=== PATIENT | female | born 1945 | race African-American/Black ===

== ENCOUNTER 2016-10-02 15:40 | Emergency (ER) | payer OTHER ==
[~2016-10-02] VITALS: Ht 170.2 cm; Wt 88.9 kg
[~2016-10-02 15:40] MED LIST: ADVAIR HFA 1112 UNIT INH; ALBUTEROL INHAL17 GM IH; ALBUTEROL2.5 MG/31 INH; ALBUTEROL2.5 MG/32 IH; ALDACTONE25 MG PO; AMBIEN 5 MG TABL5 M1 PO; AMLODIPINE BESYL5 MG PO; AMOXICILLIN 50500 M1 PO; ASPIRIN EC325 M1 PO; AZITHROMYCIN 2250 MG PO; BENADRYL25 MG PO; CATAPRES-TTS 10.1 MG TOP; COZAAR 50 MG TA50 M1 PO; COZAAR 50 MG TA50 M2 PO; COZAAR100 MG PO; DUONEB 2.5-0.5 M3 ML INH; HYDROCODONE-AP1 EAC6 PO; K-DUR 20 MEQ T20 MEQ PO; K-DUR10 ME1 PO; KCLP 20 MEQ2 MEQ/ML PO; KLOR-CON 10 ER10 MEQ PO; KLOR-CON 1010 MEQ PO; LEXAPRO 10 MG T10 MG PO; LO-DOSE ASPIRIN81 M1 PO; LOPRESSOR25 PO; LORTAB 5 MG/5001 TA1 PO; MACROBID 100 M100 M3 PO; METOPROLOL SUCC25 M1 PO; MUCINEX600 MG PO; MULTIVITAMINS PO; NAPROSYN375 MG PO; NEXIUM40 MG PO; NORCO 5-325 TA1 EACH PO; NORVASC10 MG PO; NOVOLOG100 UNIT/1; NOVOLOG100 UNIT/1 SUBQ; NOVOPEN 31 EACH SQ; OMEPRAZOLE 20 M20 M1 PO; OMEPRAZOLE PO; POTASSIUM20 PO; PREDNISONE 10 M10 M1; PREDNISONE 10 M10 M1 PO; PRILOSEC 20 MG20 MG PO; PROAIR HFA8.5 GM INH; PROVENTIL HFA6.7 G1 INH; TESSALON PERLE100 MG PO; TOPROL XL50 MG PO; VENTOLIN HFA 1818 GM INH; XANAX 0.5 MG0.5 M1 PO; XANAX 0.5 MG0.5 MG PO; ZOFRAN ODT4 MG PO; ZPAK PO
[2016-10-02 16:14] LABS: ABSOLUTE NEUTROPHILS 5.3 thou/uL (1.4-8.2); BASOPHILS 0.9 % (0.0-2.0); EOSINOPHILS 1.7 % (0.0-3.0); HEMATOCRIT 32.2 % (37.0-47.0); HEMOGLOBIN 10.7 gm/dL (12.0-15.0); LYMPHOCYTES 14.5 % (24.0-44.0); MCH 25.9 pg (26.0-34.0); MCHC 33.3 % (28.0-37.0); MCV 77.8 fL (80.0-100.0); MONOCYTES 7.1 % (1.0-8.0); PLATELET COUNT 213 thou/uL (150-400); POLYS 75.8 % (36.0-66.0); RBC 4.14 mil/uL (4.20-5.00); RDW 14.8 % (10.5-14.5)
[2016-10-02 16:17] LABS: MANUAL DIFF NO
[2016-10-02] MEDS ORDERED: LOPRESSOR25 PO (16:18)
[2016-10-02] MEDS ORDERED: LOSARTAN POTASS50 MG PO (16:19)
[2016-10-02 16:21] LABS: CALCIUM 8.9 mg/dL (8.5-10.1); CREATININE 1.2 mg/dL (0.6-1.3); POTASSIUM 3.5 mmol/L (3.5-5.1)
[2016-10-02 16:27] LABS: ALBUMIN 3.7 g/dL (3.4-5.0); TOTAL BILIRUBIN 1.1 mg/dL (<0.1-1.0); TOTAL PROTEIN 7.8 g/dL (6.4-8.2)
[2016-10-02 17:29] LABS: URINE BILIRUBIN NEGATIVE (Negative); URINE BLOOD NEGATIVE (Negative); URINE COLOR YELLOW; URINE GLUCOSE-RANDOM* NEGATIVE (Negative); URINE KETONES NEGATIVE (Negative); URINE LEUKOCYTES-REFLEX 1+ (Negative); URINE PROTEIN (DIPSTICK) NEGATIVE (Negative); URINE SPECIFIC GRAVITY <= 1.005 (1.003-1.035); URINE UROBILINOGEN 0.2 E.U./dl (0.2-1.0)
[2016-10-02 17:44] LABS: CASTS None Seen /LPF (None Seen); CRYSTALS None Seen /LPF (None Seen); SQUAMOUS None Seen /LPF (0-3); URINE WBC-REFLEX 0-5 Rare /HPF (0-5)
[2016-10-02 17:45] LABS: URINE RBC None Seen /HPF (0-2)
[2016-10-02] MEDS ORDERED: VENTOLIN HFA 1818 GM INH (18:48)
[2016-10-02] MEDS ORDERED: NAPROSYN500 MG PO (18:48)
[2016-10-02 19:06] VITALS: BP 135/74
[2016-11-04] MEDS ORDERED: ANTIVERT25 MG PO (01:07)
[2016-11-04] MEDS ORDERED: KEFLEX500 MG PO (01:26)
== END 2016-10-02 19:33 | disposition home or self-care (01) ==
LOC: ER 15:40
PROVIDERS: Emergency Medicine
DX: B34.9 Viral infection, unspecified (principal); I10 Essential (primary) hypertension; E11.9 Type 2 diabetes mellitus without complications; Z88.1 Allergy status to other antibiotic agents; Z88.8 Allergy status to other drugs, medicaments and biological substances

== ENCOUNTER 2017-04-18 18:53 | Emergency (ER) | payer OTHER ==
[~2017-04-18] VITALS: Ht 170.2 cm; Wt 85.7 kg
--- NOTE | ~2017-04-18 | EKG ---
[address] [place] [address] ELECTROCARDIOGRAM REPORT Name: ELISABETHRAMIREZ Pascual [id number] Admission: 04/18/17 Attend Phys: Discharge: 04/18/17 Date of : 47 Report #: [id number] THIS REPORT FOR: //name// [facility] ED Test Date: 2017-04-18 Test Time: 19:09:56 Pat Name: RAMIREZ BARBER Department: Room: Gender: F Portfolio Specialist: [id number] : 1945 Requested By: Nadira Rojas Order Number: [id number] MD: Alexis Saldana Measurements Intervals [place] Rate: 68 P: 26 WY: 201 QRS: -45 QRSD: 125 T: 14 QT: 433 QTc: 461 Interpretive Statements Sinus rhythm Nonspecific IVCD with LAD Left ventricular hypertrophy Baseline wander in lead(s) II,aVR,aVF Compared to ECG 04/01/2017 08:30:03 Early repolarization no longer present Electronically Signed On 04-21-2017 8:33:01 CDT by Alexis Saldana [email or web address] <ELECTRONICALLY SIGNED> By: Alexis Saldana MD, [facility] 04/21/17 0833 [id number] 1909 Alexis Saldana MD, [facility] /EPI
[~2017-04-18 18:53] MED LIST changes: +ANTIVERT25 MG PO; +KEFLEX500 MG PO; +LOSARTAN POTASS50 MG PO; +NAPROSYN500 MG PO
[2017-04-18 19:35] LABS: ABSOLUTE NEUTROPHILS 3.2 thou/uL (1.4-8.2); BASOPHILS 0.6 % (0.0-2.0); EOSINOPHILS 3.9 % (0.0-3.0); HEMATOCRIT 29.9 % (37.0-47.0); LYMPHOCYTES 35.8 % (24.0-44.0); MCH 26.6 pg (26.0-34.0); MCHC 33.6 g/dL (28.0-37.0); MCV 79.2 fL (80.0-100.0); MONOCYTES 7.8 % (1.0-8.0); PLATELET COUNT 243 thou/uL (150-400); POLYS 51.9 % (36.0-66.0); RBC 3.77 mil/uL (4.20-5.00); RDW 14.7 % (10.5-14.5); WBC 6.1 thou/uL (4.0-11.0)
[2017-04-18 19:37] LABS: MANUAL DIFF NO
[2017-04-18 19:40] LABS: ANION GAP 10 mmol/L (7-16); BUN 13 mg/dL (7-18); CHLORIDE 107 mmol/L (98-107); CO2 28 mmol/L (21-32); CREATININE 1.3 mg/dL (0.6-1.0); GLUCOSE 117 mg/dL (74-106); POTASSIUM 3.5 mmol/L (3.5-5.1); SODIUM 145 mmol/L (136-145)
[2017-04-18 19:50] LABS: TROPONIN-I < 0.04 ng/mL (<0.04-0.07)
[2017-04-18] MEDS ORDERED: ZANTAC 150MG T150 MG PO (20:12)
[2017-04-18 20:30] VITALS: BP 164/74
== END 2017-04-18 20:31 | disposition home or self-care (01) ==
LOC: ER 18:53
PROVIDERS: Emergency Medicine
DX: K21.9 Gastro-esophageal reflux disease without esophagitis (principal); I10 Essential (primary) hypertension; E11.9 Type 2 diabetes mellitus without complications; D86.9 Sarcoidosis, unspecified; Z79.4 Long term (current) use of insulin; Z88.1 Allergy status to other antibiotic agents; Z88.8 Allergy status to other drugs, medicaments and biological substances

== ENCOUNTER 2017-10-16 21:39 | Emergency (ER) | payer OTHER ==
[~2017-10-16] VITALS: Ht 170.2 cm; Wt 86.2 kg
--- NOTE | ~2017-10-16 | EKG ---
[address] [place] [address] ELECTROCARDIOGRAM REPORT Name: RAMIREZ BARBER [facility] [id number] Admission: 10/16/17 Attend Phys: Discharge: 10/17/17 Date of : 47 Report #: [id number] THIS REPORT FOR: //name// [facility] ED Test Date: 2017-10-16 Test Time: 23:06:24 Pat Name: RAMIREZ BARBER Department: Room: Gender: F Structural Steel Equipment Erector: [facility] : 1945 Requested By: Ganesh Casillas Order Number: [id number] MD: Alexis Saldana Measurements Intervals [place] Rate: 84 P: -62 [place]: 215 QRS: -48 QRSD: 117 T: 5 QT: 370 QTc: 438 Interpretive Statements Sinus rhythm Borderline prolonged OK interval LAD, consider left anterior fascicular block Nonspecific intraventricular conduction delay Nonspecific ST and T wave abnormality Compared to ECG 09/10/2017 01:44:23 No significant change was found Electronically Signed On 10-17-2017 9:09:39 ORAL SURGERY PHYSICIAN by Alexis Saldana [email or web address] <ELECTRONICALLY SIGNED> By: Alexis Saldana MD, [facility] 10/17/17 0909 2306 Alexis Saldana MD, [facility] /EPI
[~2017-10-16 21:39] MED LIST changes: +ZANTAC 150MG T150 MG PO
[2017-10-16 23:11] LABS: ABSOLUTE NEUTROPHILS 8.4 thou/uL (1.4-8.2); BASOPHILS 0.8 % (0.0-2.0); HEMATOCRIT 31.2 % (37.0-47.0); HEMOGLOBIN 10.4 gm/dL (12.0-15.0); LYMPHOCYTES 13.4 % (24.0-44.0); MCH 26.2 pg (26.0-34.0); MCHC 33.4 g/dL (28.0-37.0); MCV 78.6 fL (80.0-100.0); MONOCYTES 6.8 % (1.0-8.0); PLATELET COUNT 222 thou/uL (150-400); RBC 3.97 mil/uL (4.20-5.00); RDW 15.1 % (10.5-14.5); WBC 10.8 thou/uL (4.0-11.0)
[2017-10-16 23:30] LABS: CALCIUM 8.6 mg/dL (8.5-10.1); CREATININE 1.2 mg/dL (0.6-1.0); POTASSIUM 3.5 mmol/L (3.5-5.1)
[2017-10-16] MEDS ORDERED: ZOFRAN ODT4 MG PO (23:48)
[2017-10-16] MEDS ORDERED: OSELB75 PO (23:48)
[2017-10-17 00:33] VITALS: BP 146/67
== END 2017-10-17 00:41 | disposition home or self-care (01) ==
LOC: ER 21:39
PROVIDERS: Emergency Medicine
DX: J11.1 Influenza due to unidentified influenza virus with other respiratory manifestations (principal); I10 Essential (primary) hypertension; E11.9 Type 2 diabetes mellitus without complications; Z88.1 Allergy status to other antibiotic agents

== ENCOUNTER 2018-02-01 19:52 | Emergency (ER) | payer OTHER ==
[~2018-02-01] VITALS: Ht 170.2 cm; Wt 84.8 kg
--- NOTE | ~2018-02-01 | EKG ---
[place] [address] [address] [facility] [place] [address] ELECTROCARDIOGRAM REPORT Name: ELISABETHRAMIREZ Pascual Room #: [facility] Javid#: [id number] Admission: 02/01/18 Attend Phys: Discharge: 02/01/18 Date of : 47 Report #: [id number] THIS REPORT FOR: //name// [facility] ED Test Date: 2018-02-01 Test Time: 20:00:29 Pat Name: RAMIREZ BARBER Department: Room: Gender: F Library Media Assistant: TAI : 1945 Requested By: Ganesh Casillas Order Number: [id number] MD: Anton Peralta Measurements Intervals [place] Rate: 89 P: 40 [place]: 196 QRS: -37 QRSD: 117 T: 18 QT: 365 QTc: 445 Interpretive Statements Sinus rhythm LVH with IVCD, LAD and secondary repol abnrm Compared to ECG 10/16/2017 23:06:24 Left ventricular hypertrophy now present Early repolarization now present ST (T wave) deviation no longer present Electronically Signed On 02-02-2018 13:52:15 CDT by Anton Peralta [email or web address] <ELECTRONICALLY SIGNED> By: Anton Peralta MD 02/02/18 1352 99 99 Anton Peralta MD /EPI
[~2018-02-01 19:52] MED LIST changes: +OSELB75 PO
[2018-02-01] MEDS ORDERED: ZOFRAN ODT4 MG PO (20:39)
[2018-02-01 21:02] VITALS: BP 161/60
== END 2018-02-01 21:03 | disposition home or self-care (01) ==
LOC: ER 19:52
DX: J02.8 Acute pharyngitis due to other specified organisms (principal); I10 Essential (primary) hypertension; D86.9 Sarcoidosis, unspecified; E11.9 Type 2 diabetes mellitus without complications; Z79.4 Long term (current) use of insulin; Z88.1 Allergy status to other antibiotic agents; Z88.8 Allergy status to other drugs, medicaments and biological substances

== ENCOUNTER 2018-02-08 01:31 | Emergency (ER) | payer OTHER ==
[~2018-02-08] VITALS: Ht 172.7 cm; Wt 88.9 kg
[2018-02-08 04:44] LABS: HEMATOCRIT 29.8 % (37.0-47.0); HEMOGLOBIN 9.9 gm/dL (12.0-15.0); MCH 25.7 pg (26.0-34.0); MCHC 33.1 g/dL (28.0-37.0); MCV 77.7 fL (80.0-100.0); PLATELET COUNT 262 thou/uL (150-400); RBC 3.83 mil/uL (4.20-5.00); RDW 15.5 % (10.5-14.5)
[2018-02-08 04:51] LABS: ANION GAP 7 mmol/L (7-16); BUN 16 mg/dL (7-18); CHLORIDE 103 mmol/L (98-107); CO2 27 mmol/L (21-32); CREATININE 1.2 mg/dL (0.6-1.0); GLUCOSE 110 mg/dL (74-106); SODIUM 137 mmol/L (136-145)
[2018-02-08 04:59] LABS: TROPONIN-I < 0.04 ng/mL (<0.06)
[2018-02-08 05:23] LABS: ANISOCYTOSIS SLIGHT
[2018-02-08] MEDS ORDERED: GUAIFEN-CODEINE10 ML PO (05:55)
[2018-02-08 06:21] VITALS: BP 152/80
== END 2018-02-08 06:27 | disposition home or self-care (01) ==
LOC: ER 01:31
PROVIDERS: Emergency Medicine
DX: B34.9 Viral infection, unspecified (principal); I10 Essential (primary) hypertension; E11.9 Type 2 diabetes mellitus without complications; Z88.1 Allergy status to other antibiotic agents; Z88.8 Allergy status to other drugs, medicaments and biological substances

== ENCOUNTER 2018-03-18 10:32 | Emergency (ER) | payer OTHER ==
[~2018-03-18] VITALS: Ht 170.2 cm; Wt 83.9 kg
[~2018-03-18 10:32] MED LIST changes: +GUAIFEN-CODEINE10 ML PO
[2018-03-18] MEDS ORDERED: HYDROCODONE-AP1 EAC6 PO (11:46)
[2018-03-18 11:59] VITALS: BP 166/78
== END 2018-03-18 12:00 | disposition home or self-care (01) ==
LOC: ER 10:32
DX: S80.02XA Contusion of left knee, initial encounter (principal); I10 Essential (primary) hypertension; E11.9 Type 2 diabetes mellitus without complications; Z88.1 Allergy status to other antibiotic agents; W22.09XA Striking against other stationary object, initial encounter; Y93.89 Activity, other specified; Y92.89 Other specified places as the place of occurrence of the external cause; Y99.8 Other external cause status

== ENCOUNTER 2018-11-08 15:21 | Emergency (ER) | payer OTHER ==
[~2018-11-08] VITALS: Ht 167.6 cm; Wt 83.9 kg
[2018-11-08 15:43] LABS: ABSOLUTE NEUTROPHILS 3.2 thou/uL (1.4-8.2); BASOPHILS 0.9 % (0.0-2.0); EOSINOPHILS 4.7 % (0.0-3.0); HEMATOCRIT 33.3 % (37.0-47.0); HEMOGLOBIN 11.1 gm/dL (12.0-15.0); MCH 26.4 pg (26.0-34.0); MCHC 33.4 g/dL (28.0-37.0); MCV 79.2 fL (80.0-100.0); MONOCYTES 6.1 % (1.0-8.0); PLATELET COUNT 255 thou/uL (150-400); POLYS 51.3 % (36.0-66.0); RDW 15.1 % (10.5-14.5); WBC 6.3 thou/uL (4.0-11.0)
[2018-11-08 15:52] LABS: ANION GAP 9 mmol/L (7-16); BUN 15 mg/dL (7-18); CALCIUM 9.3 mg/dL (8.5-10.1); CHLORIDE 105 mmol/L (98-107); CO2 28 mmol/L (21-32); CREATININE 1.6 mg/dL (0.6-1.0); GLUCOSE 153 mg/dL (74-106); POTASSIUM 3.5 mmol/L (3.5-5.1); SODIUM 142 mmol/L (136-145)
[2018-11-08 16:02] LABS: ALBUMIN 3.7 g/dL (3.4-5.0); MAGNESIUM 1.9 mg/dL (1.8-2.4); SGOT 18 U/L (15-37); SGPT 24 U/L (30-65); TOTAL BILIRUBIN 0.5 mg/dL (<0.1-1.0); TOTAL PROTEIN 7.8 g/dL (6.4-8.2); TROPONIN-I <0.06 ng/mL (<0.06)
[2018-11-08] MEDS ORDERED: SULFACETAMIDE 115 M1 OPHTHALMIC (16:33)
[2018-11-08 16:48] VITALS: BP 162/76
[2018-11-08 17:58] LABS: URINE BILIRUBIN NEGATIVE (Negative); URINE BLOOD NEGATIVE (Negative); URINE CLARITY CLEAR; URINE COLOR YELLOW; URINE GLUCOSE-RANDOM* NEGATIVE (Negative); URINE KETONES NEGATIVE (Negative); URINE LEUKOCYTES 1+ (Negative); URINE NITRITE NEGATIVE (Negative); URINE PROTEIN (DIPSTICK) NEGATIVE (Negative); URINE SPECIFIC GRAVITY 1.015 (1.005-1.035); URINE UROBILINOGEN 0.2 E.U./dl (0.2-1.0)
[2018-11-08 18:08] LABS: BACTERIA 1-9 Few /HPF (None Seen); CASTS None Seen /LPF (None Seen); CRYSTALS None Seen /LPF (None Seen); SQUAMOUS 0-3 Few /LPF (0-3); URINE RBC None Seen /HPF (0-2); URINE WBC 0-5 Rare /HPF (0-5)
--- NOTE | 2018-11-08 22:11 | EKG ---
[address] [address] [facility] [place] [address] ELECTROCARDIOGRAM REPORT Name: RAMIREZ BARBER Room #: [facility] Javid#: [id number] ������������������ Admission: 11/08/18 ������������������ Attend Phys: Discharge: 11/08/18 ������������������ Date of : 47 Report #: [id number] ����������������������������������������������������������������� [id number] THIS REPORT FOR: //name// [facility] ED Test Date: 2018-11-08 Test Time: 15:27:21 Pat Name: RAMIREZ BARBER Department: Room: Gender: F Logging Tractor Operator: : 1945 Requested By: Darrell Rossi Order Number: [id number] MD: Anton Peralta Measurements Intervals [place] Rate: 76 P: -41 MA: 228 QRS: -45 QRSD: 120 T: 24 QT: 419 QTc: 472 Interpretive Statements Sinus rhythm Prolonged MA interval Nonspecific IVCD with LAD Left ventricular hypertrophy Compared to ECG 02/01/2018 20:00:29 First degree AV block now present Early repolarization no longer present Electronically Signed On 11-08-2018 22:11:48 TRAVEL ADMINISTRATOR by Anton Peralta [email or web address] ��������������������������������������������� <ELECTRONICALLY SIGNED> ���������������������������������������� By: nAton Peralta MD ��������������������������������������������� 11/08/18 3291 1527 1527 Anton Peralta MD /LAMINE
== END 2018-11-08 16:52 | disposition home or self-care (01) ==
LOC: ER 15:21
PROVIDERS: Emergency Medicine
DX: R55 Syncope and collapse (principal); I12.9 Hypertensive chronic kidney disease with stage 1 through stage 4 chronic kidney disease, or unspecified chronic kidney disease; E11.22 Type 2 diabetes mellitus with diabetic chronic kidney disease; N18.9 Chronic kidney disease, unspecified; F41.9 Anxiety disorder, unspecified; M25.562 Pain in left knee; D86.9 Sarcoidosis, unspecified; Z88.8 Allergy status to other drugs, medicaments and biological substances; Z88.1 Allergy status to other antibiotic agents; Z79.4 Long term (current) use of insulin

== ENCOUNTER 2018-11-22 02:57 | Emergency (ER) | payer OTHER ==
[~2018-11-22] VITALS: Ht 170.2 cm; Wt 88.9 kg
[~2018-11-22 02:57] MED LIST changes: +SULFACETAMIDE 115 M1 OPHTHALMIC
[2018-11-22 03:06] VITALS: BP 187/79
== END 2018-11-22 03:43 | disposition home or self-care (01) ==
LOC: ER 02:57
DX: R51 Headache (principal); I10 Essential (primary) hypertension; E11.9 Type 2 diabetes mellitus without complications; Z88.1 Allergy status to other antibiotic agents; Z88.8 Allergy status to other drugs, medicaments and biological substances

== ENCOUNTER 2019-04-15 03:21 | Emergency (ER) | payer OTHER ==
[~2019-04-15] VITALS: Ht 170.2 cm; Wt 90.3 kg
[2019-04-15] MEDS ORDERED: FLONASE 0.05%50 MCG NASAL (05:08)
[2019-04-15] MEDS ORDERED: ZPAK PO (05:29)
[2019-04-15 05:45] VITALS: BP 156/71
== END 2019-04-15 06:01 | disposition home or self-care (01) ==
LOC: ER 03:21
DX: M27.0 Developmental disorders of jaws (principal); R09.81 Nasal congestion; I10 Essential (primary) hypertension; E11.9 Type 2 diabetes mellitus without complications; Z79.4 Long term (current) use of insulin; Z88.1 Allergy status to other antibiotic agents; Z88.8 Allergy status to other drugs, medicaments and biological substances

== ENCOUNTER 2020-05-04 06:09 | Emergency (ER) | payer OTHER ==
[~2020-05-04] VITALS: Ht 170.2 cm; Wt 81.2 kg
[~2020-05-04 06:09] MED LIST changes: +FLONASE 0.05%50 MCG NASAL
[2020-05-04 06:45] LABS: HEMATOCRIT 32.5 % (37.0-47.0); HEMOGLOBIN 10.5 gm/dL (12.0-15.0); MCH 25.9 pg (26.0-34.0); MCHC 32.5 g/dL (28.0-37.0); MCV 79.9 fL (80.0-100.0); PLATELET COUNT 308 thou/uL (150-400); RBC 4.06 mil/uL (4.20-5.00); RDW 15.6 % (10.5-14.5); WBC 6.2 thou/uL (4.0-11.0)
[2020-05-04 06:49] LABS: ANION GAP 10 mmol/L (7-16); BUN 21 mg/dL (7-18); CALCIUM 8.6 mg/dL (8.5-10.1); CHLORIDE 106 mmol/L (98-107); CO2 27 mmol/L (21-32); CREATININE 1.3 mg/dL (0.6-1.0); GLUCOSE 95 mg/dL (74-106); POTASSIUM 3.8 mmol/L (3.5-5.1); SODIUM 143 mmol/L (136-145)
[2020-05-04 06:57] LABS: TROPONIN-I <0.06 ng/mL (<0.06)
[2020-05-04 08:05] VITALS: BP 148/68
[2020-05-04 08:46] LABS: ABSOLUTE NEUTROPHILS 3.1 thou/uL (1.4-8.2)
[2020-05-04 08:47] LABS: ANISOCYTOSIS SLIGHT
--- NOTE | 2020-05-04 09:12 | EKG ---
[facility] [place] [address] ELECTROCARDIOGRAM REPORT Name: RAMIREZ BARBER Room #: [facility]#: [id number] Admission: 05/04/20 Attend Phys: Discharge: 05/04/20 Date of : 47 Report #: [id number] THIS REPORT FOR: cc: Varun Don MD, Stany A. MD Lundgren,Alexis Crump MD [facility] ~ THIS REPORT FOR: //name// [facility] ED Test Date: 2020-05-04 Test Time: 06:18:16 Pat Name: RAMIREZ BARBER Department: Room: Gender: F Sausage Cutter: EDUARD : 1945 Requested By: Nate Shook Order Number: [id number] MD: Alexis Saldana Measurements Intervals [place] Rate: 59 P: -45 NV: 235 QRS: -41 QRSD: 125 T: 1 QT: 424 QTc: 420 Interpretive Statements Sinus bradycardia Prolonged NV interval Nonspecific IVCD with LAD Left ventricular hypertrophy Baseline wander in lead(s) I,II,aVR Compared to ECG 11/08/2018 15:27:21 No significant change was found Electronically Signed On 05-04-2020 9:12:33 CDT by Alexis Saldana [email or web address] <ELECTRONICALLY SIGNED> By: Alexis Saldana MD, [facility] 05/04/20911 7 7 Alexis Saldana MD, FAC /EPI
== END 2020-05-04 08:23 | disposition home or self-care (01) ==
LOC: ER 06:09
PROVIDERS: Emergency Medicine
DX: R07.9 Chest pain, unspecified (principal); R53.83 Other fatigue; I10 Essential (primary) hypertension; E11.9 Type 2 diabetes mellitus without complications; Z98.890 Other specified postprocedural states; Z79.899 Other long term (current) drug therapy; Z79.4 Long term (current) use of insulin; Z88.1 Allergy status to other antibiotic agents

== ENCOUNTER 2020-10-02 15:54 | Emergency (ER) | payer OTHER ==
[~2020-10-02] VITALS: Ht 170.2 cm; Wt 80.3 kg
--- NOTE | 2020-10-02 16:22 | EKG ---
[place] [address] [address] [facility] [place] [address] ELECTROCARDIOGRAM REPORT Name: RAMIREZ BARBER Room #: [facility].#: [id number] Admission: Attend Phys: Discharge: Date of : 47 Report #: [id number] [facility] ED Test Date: 2020-10-02 Test Time: 16:02:11 Pat Name: RAMIREZ BARBER Department: Room: Gender: F Manager Urgent Care: ELDA : 1945 Requested By: Michele Celis Order Number: [id number] MD: Alexis Saldana Measurements Intervals [place] Rate: 80 P: -45 DE: 205 QRS: -30 QRSD: 118 T: 49 QT: 402 QTc: 464 Interpretive Statements Sinus rhythm with first-degree AV block LAFB Nonspecific intraventricular conduction delay Nonspecific ST segment abnormality Compared to ECG 05/04/2020 06:18:16 No significant change was found Electronically Signed On 10-02-2020 16:22:02 STOCK CRANE OPERATOR by Alexis Saldana [email or web address] <ELECTRONICALLY SIGNED> By: Alexis Saldana MD, [facility] 10/02/20 1622 1602 1602 Alexis Saldana MD, FACC /EPI
[2020-10-02 16:48] LABS: ABSOLUTE NEUTROPHILS 2.3 thou/uL (1.4-8.2); BASOPHILS 1.3 % (0.0-2.0); HEMATOCRIT 31.7 % (37.0-47.0); HEMOGLOBIN 10.1 gm/dL (12.0-15.0); LYMPHOCYTES 27.6 % (24.0-44.0); MCH 25.8 pg (26.0-34.0); MCHC 31.9 g/dL (28.0-37.0); MCV 80.9 fL (80.0-100.0); MONOCYTES 9.6 % (1.0-8.0); PLATELET COUNT 198 thou/uL (150-400); POLYS 60.5 % (36.0-66.0); RBC 3.92 mil/uL (4.20-5.00); RDW 15.2 % (10.5-14.5); WBC 3.7 thou/uL (4.0-11.0)
[2020-10-02 16:59] LABS: ANION GAP 12 mmol/L (7-16); BUN 10 mg/dL (7-18); CALCIUM 8.8 mg/dL (8.5-10.1); CHLORIDE 104 mmol/L (98-107); CO2 26 mmol/L (21-32); CREATININE 1.2 mg/dL (0.6-1.0); GLUCOSE 109 mg/dL (74-106); POTASSIUM 3.6 mmol/L (3.5-5.1); SODIUM 142 mmol/L (136-145)
[2020-10-02 17:02] LABS: APTT 25.5 Seconds (24.5-32.8); PROTIME 10.6 Seconds (9.3-11.4)
[2020-10-02 17:09] LABS: ALBUMIN 3.3 g/dL (3.4-5.0); SGOT 23 U/L (15-37); SGPT 27 U/L (30-65); TOTAL BILIRUBIN 0.6 mg/dL (0.2-1.0); TOTAL PROTEIN 7.4 g/dL (6.4-8.2); TROPONIN-I <0.06 ng/mL (<0.06)
[2020-10-02 17:21] LABS: URINE BILIRUBIN NEGATIVE (Negative); URINE BLOOD NEGATIVE (Negative); URINE CLARITY CLEAR; URINE COLOR YELLOW; URINE GLUCOSE-RANDOM* NEGATIVE (Negative); URINE KETONES NEGATIVE (Negative); URINE LEUKOCYTES-REFLEX NEGATIVE (Negative); URINE NITRITE-REFLEX NEGATIVE (Negative); URINE PROTEIN (DIPSTICK) 1+ (Negative); URINE SPECIFIC GRAVITY 1.015 (1.005-1.035); URINE UROBILINOGEN 0.2 E.U./dl (0.2-1.0)
[2020-10-02 17:35] LABS: BACTERIA-REFLEX 1-9 Few /HPF (None Seen); CASTS None Seen /LPF (None Seen); CRYSTALS None Seen /LPF (None Seen); SQUAMOUS 0-3 Few /LPF (0-3)
[2020-10-02 17:36] LABS: URINE RBC None Seen /HPF (0-2); URINE WBC-REFLEX None Seen /HPF (0-5)
[2020-10-02] MEDS ORDERED: CODEINE-GUAIFE120 ML PO (18:01)
[2020-10-02 18:35] VITALS: BP 124/75
== END 2020-10-02 18:41 | disposition home or self-care (01) ==
LOC: ER 15:54
PROVIDERS: Emergency Medicine
DX: U07.1 COVID-19 (principal); I10 Essential (primary) hypertension; E11.9 Type 2 diabetes mellitus without complications; Z98.890 Other specified postprocedural states; Z88.1 Allergy status to other antibiotic agents; Z88.8 Allergy status to other drugs, medicaments and biological substances; Z79.4 Long term (current) use of insulin; Z79.899 Other long term (current) drug therapy

== ENCOUNTER 2020-10-04 04:22 | Emergency (ER) | payer OTHER ==
[~2020-10-04] VITALS: Ht 170.2 cm; Wt 80.3 kg
[~2020-10-04 04:22] MED LIST changes: +CODEINE-GUAIFE120 ML PO
[2020-10-04 05:16] LABS: ABSOLUTE NEUTROPHILS 3.8 thou/uL (1.4-8.2); BASOPHILS 0.7 % (0.0-2.0); EOSINOPHILS 0.8 % (0.0-3.0); HEMATOCRIT 31.1 % (37.0-47.0); HEMOGLOBIN 9.9 gm/dL (12.0-15.0); LYMPHOCYTES 22.4 % (24.0-44.0); MCH 25.7 pg (26.0-34.0); MCHC 31.9 g/dL (28.0-37.0); MCV 80.7 fL (80.0-100.0); MONOCYTES 6.6 % (1.0-8.0); PLATELET COUNT 212 thou/uL (150-400); POLYS 69.5 % (36.0-66.0); RBC 3.86 mil/uL (4.20-5.00); RDW 14.9 % (10.5-14.5); WBC 5.5 thou/uL (4.0-11.0)
[2020-10-04 05:59] LABS: ALBUMIN 3.2 g/dL (3.4-5.0); ANION GAP 12 mmol/L (7-16); BUN 10 mg/dL (7-18); CHLORIDE 103 mmol/L (98-107); CO2 24 mmol/L (21-32); CREATININE 1.2 mg/dL (0.6-1.0); GLUCOSE 117 mg/dL (74-106); LIPASE 107 U/L (73-393); POTASSIUM 3.4 mmol/L (3.5-5.1); SGOT 24 U/L (15-37); SGPT 25 U/L (14-59); SODIUM 139 mmol/L (136-145); TOTAL BILIRUBIN 0.6 mg/dL (0.2-1.0); TOTAL PROTEIN 7.4 g/dL (6.4-8.2); TROPONIN-I <0.06 ng/mL (<0.06)
[2020-10-04 06:00] LABS: CALCIUM 8.9 mg/dL (8.5-10.1)
[2020-10-04 06:17] LABS: URINE BILIRUBIN NEGATIVE (Negative); URINE BLOOD NEGATIVE (Negative); URINE CLARITY CLEAR; URINE COLOR YELLOW; URINE GLUCOSE-RANDOM* NEGATIVE (Negative); URINE KETONES TRACE (Negative); URINE LEUKOCYTES-REFLEX NEGATIVE (Negative); URINE NITRITE-REFLEX NEGATIVE (Negative); URINE PROTEIN (DIPSTICK) 1+ (Negative); URINE SPECIFIC GRAVITY 1.015 (1.005-1.035); URINE UROBILINOGEN 0.2 E.U./dl (0.2-1.0)
[2020-10-04 06:54] LABS: BACTERIA-REFLEX None Seen /HPF (None Seen); CASTS None Seen /LPF (None Seen); CRYSTALS None Seen /LPF (None Seen); SQUAMOUS 0-3 Few /LPF (0-3); URINE RBC 0-2 Rare /HPF (0-2); URINE WBC-REFLEX 0-5 Rare /HPF (0-5)
--- NOTE | 2020-10-04 07:17 | EKG ---
[address] [address] [place] [address] ELECTROCARDIOGRAM REPORT Name: ELISABETHESTHELARAMIREZ M [facility] #: [facility] [id number] Admission: 10/04/20 Attend Phys: Discharge: Date of : 47 Report #: [id number] [facility] ED Test Date: 2020-10-04 Test Time: 04:43:33 Pat Name: RAMIREZ BARBER Department: Room: Gender: F Field Trainer: GIACOMO : 1945 Requested By: Michele Celis Order Number: [id number] MD: Tho Lockhart Measurements Intervals [place] Rate: 72 P: -23 MN: 211 QRS: -53 QRSD: 124 T: 4 QT: 412 QTc: 451 Interpretive Statements Sinus rhythm Nonspecific IVCD with LAD Left ventricular hypertrophy Compared to ECG 10/02/2020 16:02:11 Left ventricular hypertrophy now present Left anterior fascicular block no longer present ST (T wave) deviation no longer present Electronically Signed On 10-04-2020 7:17:07 PLATE HANGER by Tho Lockhart [email or web address] <ELECTRONICALLY SIGNED> By: Tho Lockhart MD, [facility] 10/04/20 07 2 2 Tho Lockhart MD, FAC /EPI
[2020-10-04 08:41] VITALS: BP 148/65
== END 2020-10-04 08:41 | disposition home or self-care (01) ==
LOC: ER 04:22
PROVIDERS: Emergency Medicine
DX: R10.31 Right lower quadrant pain (principal); I10 Essential (primary) hypertension; E11.9 Type 2 diabetes mellitus without complications; Z88.1 Allergy status to other antibiotic agents; Z88.8 Allergy status to other drugs, medicaments and biological substances; Z79.899 Other long term (current) drug therapy; Z79.4 Long term (current) use of insulin; Z98.890 Other specified postprocedural states

== ENCOUNTER 2020-10-06 23:51 | Inpatient (IN) | payer OTHER ==
[~2020-10-06] VITALS: Ht 170.2 cm; Wt 81.2 kg
[2020-10-06 23:54] VITALS: BP 121/63
[2020-10-07 01:02] LABS: ABSOLUTE NEUTROPHILS 4.1 thou/uL (1.4-8.2); EOSINOPHILS 0.9 % (0.0-3.0); HEMATOCRIT 28.3 % (37.0-47.0); LYMPHOCYTES 19.2 % (24.0-44.0); MCH 25.5 pg (26.0-34.0); MCHC 31.9 g/dL (28.0-37.0); MCV 79.9 fL (80.0-100.0); MONOCYTES 9.7 % (1.0-8.0); PLATELET COUNT 261 thou/uL (150-400); POLYS 69.2 % (36.0-66.0); RBC 3.54 mil/uL (4.20-5.00); RDW 14.6 % (10.5-14.5); WBC 5.9 thou/uL (4.0-11.0)
[2020-10-07 01:08] LABS: CALCIUM 8.4 mg/dL (8.5-10.1); CREATININE 1.6 mg/dL (0.6-1.0); POTASSIUM 3.4 mmol/L (3.5-5.1)
[2020-10-07 01:14] LABS: ALBUMIN 2.8 g/dL (3.4-5.0); TOTAL BILIRUBIN 0.7 mg/dL (0.2-1.0); TOTAL PROTEIN 7.1 g/dL (6.4-8.2)
[2020-10-07 06:41] LABS: URINE BILIRUBIN NEGATIVE (Negative); URINE BLOOD TRACE (Negative); URINE CLARITY CLEAR; URINE COLOR YELLOW; URINE GLUCOSE-RANDOM* NEGATIVE (Negative); URINE KETONES NEGATIVE (Negative); URINE LEUKOCYTES NEGATIVE (Negative); URINE NITRITE NEGATIVE (Negative); URINE PROTEIN (DIPSTICK) NEGATIVE (Negative); URINE SPECIFIC GRAVITY <= 1.005 (1.005-1.035); URINE UROBILINOGEN 0.2 E.U./dl (0.2-1.0)
[2020-10-07] MEDS ORDERED: LOSARTAN POTAS100 MG PO (09:55)
--- NOTE | 2020-10-07 12:35 | EKG ---
[place] [address] [address] [employer] [place] [address] ELECTROCARDIOGRAM REPORT Name: RAMIREZ BARBER Room #: 170-6 ADM IN M.R.#: [id number] Admission: 10/07/20 Attend Phys: Willis Maldonado MD Discharge: Date of : 47 Report #: [id number] [facility] ED Test Date: 2020-10-07 Test Time: 00:48:11 Pat Name: RAMIREZ BARBER Department: Room: 170 Gender: F Requirements Manager: guevara : 1945 Requested By: Karan Aguirre Order Number: [id number] MD: Alexis Saldana Measurements Intervals [place] Rate: 62 P: -37 [place]: 207 QRS: -43 QRSD: 125 T: -19 QT: 447 QTc: 454 Interpretive Statements Sinus rhythm Nonspecific IVCD with LAD Borderline T abnormalities, inferior leads Compared to ECG 10/04/2020 04:43:33 No significant change was found Electronically Signed On 10-07-2020 12:35:35 OYSTER OPENER by Alexis Saldana [email or web address] <ELECTRONICALLY SIGNED> By: Alexis Saldana MD, [facility] 10/07/20 1235 0048 Alexis Saldana MD, FAC /EPI
[2020-10-07 14:42] VITALS: BP 117/63
--- NOTE | 2020-10-07 16:12 | HC ---
[facility] [place] [address] CONSULTATION Name: RAMIREZ BARBER Room #: 170-6 ADM IN M.R.#: [id number] Admission: 10/07/20 Attend Phys: Willis Maldonado MD Discharge: Date of : 47 Report #: [id number] THIS REPORT FOR: cc: Varun Don MD, Stany A. MD Barry,Jonn Gama MD ~ DATE OF SERVICE: 10/07/2020 INFECTIOUS DISEASE CONSULTATION ATTENDING PHYSICIAN: Dr. Maldonado. REASON FOR EVALUATION: COVID-19 infection, complicated by pneumonitis and respiratory failure. HISTORY OF SUBJECTIVE: Chart reviewed, patient examined. This is a 75-year-old woman with fairly extensive medical history including diabetes mellitus type 2, also has sarcoidosis and hypertension, who presented to the Emergency Room with complaints of dyspnea. She did test positive for the coronavirus on 10/02/2020. However, she noted when checking her saturations, they had dropped into the low 80s. Did admit to cough as well as. Has poor p.o. intake. She had some chills and maybe some low-grade temperature elevations along with progressive weakness. She was evaluated in the Emergency Room. Lactic acid was 1.2. Blood cultures collected at time of admission. She was seen on the , sterile thus far. D-dimer was elevated at 2.16. Did undergo a CT abdomen and pelvis previously. There is a question of a new small renal neoplasm without obstruction. No abscesses. Chest x-ray showed mild bibasilar infiltrates. CT chest PE protocol showed no evidence of pulmonary embolus, did have bronchiectasis and patchy consolidated as well. Empirically started on azithromycin, ceftriaxone as well as dexamethasone. ALLERGIES: LISTED TO LEVAQUIN, LISINOPRIL, WHICH CAUSES A COUGH. CURRENT MEDICATIONS: Include enoxaparin, multivitamin, amlodipine, famotidine, zinc, ascorbic acid, dexamethasone, insulin lispro sliding scale, ceftriaxone and azithromycin. PAST MEDICAL HISTORY: Hypertension, sarcoidosis, diabetes mellitus. SOCIAL HISTORY: Nonsmoker, no ethanol, no illicit drug use. FAMILY HISTORY: Noncontributory. REVIEW OF SYSTEMS: Otherwise, unremarkable 10-point review of systems. [facility] [address] [place] [address] CONSULTATION Name: RAMIREZ BARBER Room #: 170-6 [facility] IN [facility].#: [id number] Admission: 10/07/20 Attend Phys: Willis Maldonado MD Discharge: Date of : 47 Report #: [id number] PHYSICAL EXAMINATION: GENERAL: She is in htdm-yd-xqkdazdk distress. She is generally lucid, appears reasonably well nourished. VITAL SIGNS: Temperature 97.7, pulse 55, respirations 25, blood pressure 117/63. SKIN: Warm, dry, no rashes. HEENT: Nasal cannula in place. Normocephalic. Extraocular muscles intact. NECK: Supple. LUNGS: Few scattered coarse breath sounds. HEART: Borderline bradycardic, appears to be regular, may have a soft systolic murmur. ABDOMEN: Mildly distended, soft. There is some mild tenderness. GENITOURINARY AND RECTAL: Deferred. LABORATORY DATA: Procalcitonin 0.18. CT of the chest and chest x-ray were as noted above. Urinalysis otherwise unremarkable. CBC: White count of 5.9, H and H 9.0 and 28.3, platelets of 261. Electrolytes: Sodium 141, potassium 3.4, chloride 104, bicarbonate 24, anion gap of 13, BUN and creatinine 16 and 1.6. LFTs unremarkable. Albumin of 2.8, total protein 7.1. D-dimer 2.16. ASSESSMENT: COVID-19 infection, complicated by pneumonitis and respiratory failure, does have some underlying lung disease including bronchiectasis as well as diabetes mellitus. She is a candidate for remdesivir. We will give ivermectin as well in addition to the corticosteroids and vitamins. She is on antibacterials for possible secondary bacterial pneumonitis. She remains somewhat tenuous at this point. Continue to monitor closely. Adjust oxygen support as required. <ELECTRONICALLY SIGNED> By: Jonn Salamanca MD 10/07/20 1612 1120 1221 Jonn Salamanca MD /nt
[2020-10-07 16:29] VITALS: BP 133/65
--- NOTE | 2020-10-07 18:19 | NUR ---
PATIENT ADMIT TO UNIT AT 1610 FROM ER. A/O X4 . ON 2L/NC. ANXIOUS. GAIT UNSTEADY. WILL KEEP MONITOR.
[2020-10-07 19:44] VITALS: BP 152/74
[2020-10-07 23:31] VITALS: BP 149/90
[2020-10-08 03:20] VITALS: BP 144/67
--- NOTE | 2020-10-08 03:28 | NUR ---
PT TRANSFERRING TO BEDSIDE COMMODE WITH ASSIST AND IS TOLERATING FAIR. DENIES PAIN. RESTING COMFORTABLY. NO NEEDS VOICED. CALL LIGHT WITHIN REACH. FREQUENT OBSERVATION.
[2020-10-08 05:27] LABS: HEMATOCRIT 27.5 % (37.0-47.0); HEMOGLOBIN 8.9 gm/dL (12.0-15.0); MCH 25.5 pg (26.0-34.0); MCHC 32.3 g/dL (28.0-37.0); MCV 79.1 fL (80.0-100.0); RBC 3.48 mil/uL (4.20-5.00); RDW 14.9 % (10.5-14.5); WBC 7.8 thou/uL (4.0-11.0)
[2020-10-08 05:42] LABS: ALBUMIN 2.6 g/dL (3.4-5.0); ANION GAP 13 mmol/L (7-16); BUN 12 mg/dL (7-18); CALCIUM 8.6 mg/dL (8.5-10.1); CHLORIDE 105 mmol/L (98-107); CO2 22 mmol/L (21-32); DIRECT BILIRUBIN < 0.1 mg/dL (<0.1-0.2); GLUCOSE 170 mg/dL (74-106); POTASSIUM 3.6 mmol/L (3.5-5.1); SGOT 22 U/L (15-37); SGPT 25 U/L (14-59); SODIUM 140 mmol/L (136-145); TOTAL BILIRUBIN 0.3 mg/dL (0.2-1.0); TOTAL PROTEIN 6.7 g/dL (6.4-8.2)
[2020-10-08 07:24] VITALS: BP 156/68
--- NOTE | 2020-10-08 13:20 | NUR ---
PT REQUESTED GLUCOSE TO BE READ WHEN INSULIN BECAME AVAILABLE. PT HAD EATEN APPROXIMATELY 1/2 BANANA SINCE LAST GLUCOSE CHECK OF 209. BLOOD SUGAR WAS 242 ON NEW READING, PT CONTINUED TO REFUSE SLIDING SCALE, STATED SHE WILL ONLY TAKE 3 UNITS.
[2020-10-08 15:34] VITALS: BP 139/68
--- NOTE | 2020-10-08 17:26 | NUR ---
DURING ADMINISTRATION OF EVENING MEDICATION, PT WAS ANIMATED AND YELLING AT THE FOOTBALL GAME ON TV. EDUCATION PROVIDED TO PT REGARDING NEW ANTI-ANXIETY MEDICATION AND ADMINISTRATION OF NEW DOSE OF INSULIN ORDERED PER MD. PT ASKED HOW MUCH INSULIN WAS ADMINISTERED, THIS RN REPEATED MULTIPLE TIMES DOSE GIVEN. PT STATED 'OH, I BETTER EAT THEN.' THIS RN ENCOURAGED PT TO EAT INSULIN IS GIVEN WITH MEALS AND MEALS ARE CARB COUNTED FOR PT [facility]. PT STATES SHE DID NOT EAT ALL HER MEALS EARLIER AND PLANNED ON 'HOLDING BACK SOME FOOD FOR LATER.' THIS RN ENCOURAGED PT TO EAT MEAL TRAY AND ADDITIONAL SNACKS COULD BE PROVIDED LATER, IF NEEDED. PT VERBALIZED INTENT TO EAT DINNER TRAY AND STATED NO FURTHER QUESTIONS.
[2020-10-08 19:51] VITALS: BP 141/62
--- NOTE | 2020-10-09 03:26 | NUR ---
PT TRANSFERRING TO BEDSIDE COMMODE WITH ASSIST AND IS TOLERATING FAIR. DENIES PAIN. COMPLAINING OF A SOUR STOMACH--A ONE TIME OR DONALD FOR MYLANTA ADMINISTERED. RESTING COMFORTABLY. NO NEEDS VOICED. CALL LIGHT WITHIN REACH. FREQUENT OBSERVATION.
[2020-10-09 04:30] VITALS: BP 161/68
[2020-10-09 06:13] LABS: ABSOLUTE NEUTROPHILS 8.9 thou/uL (1.4-8.2); BASOPHILS 0.4 % (0.0-2.0); HEMATOCRIT 29.5 % (37.0-47.0); HEMOGLOBIN 9.4 gm/dL (12.0-15.0); LYMPHOCYTES 6.9 % (24.0-44.0); MCH 25.6 pg (26.0-34.0); PLATELET COUNT 376 thou/uL (150-400); POLYS 85.7 % (36.0-66.0); RBC 3.69 mil/uL (4.20-5.00); WBC 10.4 thou/uL (4.0-11.0)
[2020-10-09 06:40] LABS: ALBUMIN 2.5 g/dL (3.4-5.0); ANION GAP 15 mmol/L (7-16); BUN 11 mg/dL (7-18); CALCIUM 8.4 mg/dL (8.5-10.1); CHLORIDE 109 mmol/L (98-107); CO2 20 mmol/L (21-32); CREATININE 1.1 mg/dL (0.6-1.0); DIRECT BILIRUBIN < 0.1 mg/dL (<0.1-0.2); GLUCOSE 173 mg/dL (74-106); PHOSPHORUS 2.1 mg/dL (2.5-4.9); POTASSIUM 3.4 mmol/L (3.5-5.1); SGOT 21 U/L (15-37); SGPT 20 U/L (30-65); SODIUM 144 mmol/L (136-145); TOTAL BILIRUBIN 0.2 mg/dL (0.2-1.0); TOTAL PROTEIN 6.5 g/dL (6.4-8.2)
[2020-10-09 07:16] VITALS: BP 152/71
--- NOTE | 2020-10-09 14:22 | NUR ---
PT ALERT AND ORIENTED TIMES FOUR WITH SOMEWHAT BLUNTED AFFECT. VSS. IVF INFUSING PER ORDER. SR ON TELE. PT TOLERATES MED AND MEALS. PT UP TO CHAIR FOR SOME PART OF THE SHIFT. PT SLOWLY PROGRESSING KAILYNS POC GOALS.
[2020-10-09 16:17] VITALS: BP 135/63
[2020-10-09 19:00] VITALS: BP 145/78
--- NOTE | 2020-10-10 02:54 | NUR ---
CARE ASSUMED 1899. PT ALERT AND ORIENTED. VITALS STABLE. DENIES SOB. COUGHING UP CLEAR FLAME. PT ON 1L OF NC. BG ACHS. HS BG 133, 4 UNITS OF INSULIN NEEDED BUT PT REQUESTED ONLY 3 UNITS. SR ON THE MONITOR. NO OTHER CONCERNS . WILL CONTINUE WITH POC.
[2020-10-10 03:16] VITALS: BP 150/76
[2020-10-10 06:27] LABS: ALBUMIN 2.6 g/dL (3.4-5.0); ANION GAP 10 mmol/L (7-16); BUN 12 mg/dL (7-18); CALCIUM 8.1 mg/dL (8.5-10.1); CHLORIDE 108 mmol/L (98-107); CO2 26 mmol/L (21-32); CREATININE 1.1 mg/dL (0.6-1.0); DIRECT BILIRUBIN < 0.1 mg/dL (<0.1-0.2); GLUCOSE 166 mg/dL (74-106); PHOSPHORUS 1.8 mg/dL (2.5-4.9); SGOT 16 U/L (15-37); SGPT 27 U/L (30-65); SODIUM 144 mmol/L (136-145); TOTAL BILIRUBIN 0.2 mg/dL (0.2-1.0); TOTAL PROTEIN 6.6 g/dL (6.4-8.2)
[2020-10-10 08:42] VITALS: BP 158/77
--- NOTE | 2020-10-10 14:49 | NUR ---
Case opened to follow for dc planning. Pt is currently in enhanced ISO due to Covid + on 10-02-20. Chart reviewed and case discussed with the care team. Nurse Practitioner Manager visited with the pt via phone. The pt was A&ox4 and able to converse about her medical situation. She reports that she lives alone in her own home with 5 steps to enter. She has family (her dtr and gsons) who come by regularly to check on her. She uses a cane and rolator walker in the home. Her pcp is Dr. Varun Grady. She states she is very independent and she does not need any dc planning support. HH/SNF options presented should these be recommended by therapy;however the pt was adament that she does not need any support/assist/or rehab at dc. She intends to go directly home. Recommendation made that the pt see if a family member can stay with her at dc. She will discuss with her dtr and feels family can likely stay with her. She reports that she got Covid from her dtr but that she has recovered now. PT/OT are working with the pt. Pt getting last dose of remdesivir tomorrow and likely switching to po atb/steriods. Will follow and revisit with the pt pending the care team recommendations. Pt now off o2.
[2020-10-10 15:26] VITALS: BP 161/66
[2020-10-10 20:25] VITALS: BP 145/68
[2020-10-11 03:55] VITALS: BP 149/74
[2020-10-11 06:09] LABS: HEMATOCRIT 27.6 % (37.0-47.0); HEMOGLOBIN 8.9 gm/dL (12.0-15.0); MCH 25.5 pg (26.0-34.0); MCHC 32.3 g/dL (28.0-37.0); RBC 3.49 mil/uL (4.20-5.00); RDW 14.7 % (10.5-14.5); WBC 7.3 thou/uL (4.0-11.0)
[2020-10-11 06:30] LABS: CALCIUM 8.1 mg/dL (8.5-10.1); CREATININE 0.9 mg/dL (0.6-1.0); MAGNESIUM 1.4 mg/dL (1.8-2.4); PHOSPHORUS 2.8 mg/dL (2.6-4.7)
[2020-10-11 06:33] LABS: POTASSIUM 2.9 mmol/L (3.5-5.1)
[2020-10-11 07:00] VITALS: BP 150/77
--- NOTE | 2020-10-11 07:28 | NUR ---
LAB CALLED WITH CRITICALLY LOW K+ OF 2.9. FOLLOWED PROTOCOL AND RECEIVED ORDERS FOR PO REPLACEMENT. PT IN [employer] SPIRITS AND SLEPT MOST OF NIGHT. VSS AND POC WITH IVF GTT. CALL LIGHT WITHIN REACH.
[2020-10-11] MEDS ORDERED: ACEROLA C500 MG PO (12:48)
[2020-10-11] MEDS ORDERED: VITAMIN B-1100 M2 PO (12:48)
[2020-10-11] MEDS ORDERED: PREDNISONE 20 M20 M1 PO (12:48)
[2020-10-11] MEDS ORDERED: ZINC SULFATE 2220 MG PO (12:48)
[2020-10-11] MEDS ORDERED: CEFUROXIME500 MG PO (12:48)
[2020-10-11] MEDS ORDERED: ACETAMINOPHEN325 M1 PO (12:48)
[2020-10-11 14:34] VITALS: BP 150/77
--- NOTE | 2020-10-11 15:19 | NUR ---
DISCHARGE NOTE: SW reviewed chart and spoke with nursing and attending physician. Pt has discharge orders to go home with HH services today. SW placed multiple calls to pt's room. No answer. Pt's nurse called SW from pt's room. SW discussed recommendation for HH services. Pt states that she has cheondoism friends who are HH care workers and they will be able to assist her. SW asked if they work for a HH agency and do they need any ppwk. Pt states they do not need ppwk and that she will be fine and she will transportation home. Pt states that ID told her she will be staying in the hospital for another day. SW explained that the attending physician has discharged her. SW updated pt's nurse who will clarify with physician. No discharge needs identified at this time, but is available to assist should needs arise.
[2020-10-11 16:00] VITALS: BP 132/61; BP 173/102
--- NOTE | 2020-10-11 18:40 | NUR ---
PATIENT NOW SLEEPING AND RESPIRATINOS ARE NON LABORED. SHE WILL BE DISCHARGED HOME THIS PM. SHE STATES SHE IS READY TO GO. SHE HAS REFUSED HH. WILL CONT WITH PLAN OF CARE.
== END 2020-10-11 19:57 | disposition home or self-care (01) | DRG 177 ==
LOC: ER 23:51 → EROBS 10-07 04:52 → 3W 10-07 04:52
PROVIDERS: Emergency Medicine; Nurse Practitioner Family; Specialist; ADMIT Internal Medicine; ATTEND Internal Medicine
PROC: XW033E5 Introduction of Remdesivir Anti-infective into Peripheral Vein, Percutaneous Approach, New Technology Group 5 (ICD-10-PCS; principal; 2020-10-07)
DX: U07.1 COVID-19 (principal); J96.21 Acute and chronic respiratory failure with hypoxia; J12.82 Pneumonia due to coronavirus disease 2019; N17.0 Acute kidney failure with tubular necrosis; I10 Essential (primary) hypertension; E11.9 Type 2 diabetes mellitus without complications; J38.2 Nodules of vocal cords; D63.8 Anemia in other chronic diseases classified elsewhere; D86.9 Sarcoidosis, unspecified; N28.9 Disorder of kidney and ureter, unspecified; F41.1 Generalized anxiety disorder; Z88.1 Allergy status to other antibiotic agents; Z88.8 Allergy status to other drugs, medicaments and biological substances; Z79.899 Other long term (current) drug therapy
CPT/HCPCS: 10879

== ENCOUNTER 2020-12-16 05:51 | Inpatient (IN) | payer OTHER ==
[2020-12-16] VITALS (7 sets, daily range): BP systolic 154–192; BP diastolic 47–83
[~2020-12-16] VITALS: Ht 170.2 cm; Wt 81.6 kg
[~2020-12-16 05:51] MED LIST changes: +ACEROLA C500 MG PO; +ACETAMINOPHEN325 M1 PO; +CEFUROXIME500 MG PO; +LOSARTAN POTAS100 MG PO; +PREDNISONE 20 M20 M1 PO; +VITAMIN B-1100 M2 PO; +ZINC SULFATE 2220 MG PO
[2020-12-16 06:37] LABS: ABSOLUTE NEUTROPHILS 3.4 thou/uL (1.4-8.2); BASOPHILS 1.3 % (0.0-2.0); EOSINOPHILS 3.2 % (0.0-3.0); HEMATOCRIT 29.6 % (37.0-47.0); HEMOGLOBIN 9.5 gm/dL (12.0-15.0); LYMPHOCYTES 30.6 % (24.0-44.0); MCH 26.3 pg (26.0-34.0); MCHC 32.2 g/dL (28.0-37.0); MCV 81.6 fL (80.0-100.0); MONOCYTES 8.1 % (1.0-8.0); PLATELET COUNT 273 thou/uL (150-400); POLYS 56.8 % (36.0-66.0); RBC 3.63 mil/uL (4.20-5.00); RDW 15.9 % (10.5-14.5)
[2020-12-16 06:48] LABS: ANION GAP 7 mmol/L (7-16); BUN 14 mg/dL (7-18); CALCIUM 8.6 mg/dL (8.5-10.1); CHLORIDE 105 mmol/L (98-107); CO2 29 mmol/L (21-32); CREATININE 1.2 mg/dL (0.6-1.0); GLUCOSE 119 mg/dL (74-106); POTASSIUM 3.3 mmol/L (3.5-5.1); SODIUM 141 mmol/L (136-145)
[2020-12-16 06:59] LABS: ALBUMIN 3.3 g/dL (3.4-5.0); AMYLASE 113 U/L (25-115); DIRECT BILIRUBIN 0.2 mg/dL (<0.1-0.2); LIPASE 118 U/L (73-393); MAGNESIUM 1.7 mg/dL (1.8-2.4); PHOSPHORUS 3.4 mg/dL (2.6-4.7); SGOT 15 U/L (15-37); SGPT 25 U/L (14-59); TOTAL BILIRUBIN 0.8 mg/dL (0.2-1.0); TROPONIN-I <0.06 ng/mL (<0.06)
[2020-12-16 07:24] LABS: URINE BILIRUBIN NEGATIVE (Negative); URINE BLOOD NEGATIVE (Negative); URINE CLARITY CLEAR; URINE COLOR YELLOW; URINE GLUCOSE-RANDOM* NEGATIVE (Negative); URINE KETONES NEGATIVE (Negative); URINE LEUKOCYTES-REFLEX NEGATIVE (Negative); URINE NITRITE-REFLEX NEGATIVE (Negative); URINE PROTEIN (DIPSTICK) NEGATIVE (Negative); URINE UROBILINOGEN 0.2 E.U./dl (0.2-1.0)
--- NOTE | 2020-12-16 16:03 | 2DMMODE ---
[facility] [place] [address] 2 D/M-MODE ECHOCARDIOGRAM Name: RAMIREZ BARBER Room #: 217-P ADM IN M.R.#: [id number] Admission: 12/16/20 Attend Phys: Jessica Jarrett MD Discharge: Date of : 47 Report #: [id number] THIS REPORT FOR: cc: Varun Don MD, Stany A. MD Santiago, Patrick MD [facility] ~ APPROVED REPORT Study performed: 12/16/2020 10:14:59 EXAM: Comprehensive 2D, Doppler, and color-flow Echocardiogram Patient Location: Bedside Room #: ER-9 Status: on-call BSA: 1.93 HR: 61 bpm BP: 177/67 mmHg Rhythm: NSR Other Information Study Quality: Adequate Risk Factors: Cardiac Risk Factors: HTN Indications Chest Pain Hypertension/HDD 2D Dimensions IVSd: 18.64 (7-11mm) LVOT Diam: 20.00 (18-24mm) LVDd: 38.55 mm PWd: 15.72 (7-11mm) Ascending Ao: 36.11 (22-36mm) LVDs: 23.71 (25-40mm) Aortic Root: 29.29 mm LV Single Plane 4CH: 54.68 % LV Single Plane 2CH: 53.43 % Biplane EF: 54.6 % Volumes Left Atrial Volume (Systole) Single Plane 4CH: 54.46 mL Single Plane 2CH: 48.74 mL LA ESV Index: 29.00 mL/m2 [facility] [place] [address] 2 D/M-MODE ECHOCARDIOGRAM Name: RAMIREZ BARBER Room #: 217-P [facility] IN .R.#: [id number] Admission: 12/16/20 Attend Phys: Jessica Jarrett, Discharge: Date of : 47 Report #: [id number] Aortic Valve AoV Peak Oscar.: 1.62 m/s AO Peak Gr.: 10.56 mmHg LVOT Max P.35 mmHg LVOT Max V: 1.04 m/s JOSE EDUARDO Vmax: 1.93 cm2 Mitral Valve E/A Ratio: 1.1 MV Decel. Time: 237.69 ms MV E Max Oscar.: 0.90 m/s MV A Oscar.: 0.84 m/s MV PHT: 68.93 ms IVRT: 86.51 ms TDI E/Lateral E': 12.86 E/Medial E': 12.86 Medial E' Oscar.: 0.07 m/s Lateral E' Oscar.: 0.07 m/s Pulmonary Valve PV Peak Oscar.: 1.23 m/s PV Peak Gr.: 6.04 mmHg RI End Vmax: 1.03 m/s Pulmonary Vein P Vein S: 0.70 m/s P Vein A: 0.27 m/s P Vein D: 0.48 m/s P Vein A Dur.: 107.3 msec P Vein S/D Ratio: 1.46 Tricuspid Valve TR Peak Oscar.: 2.65 m/s RAP Estimate: 7.00 mmHg TR Peak Gr.: 28.11 mmHg PA Pressure: 35.00 mmHg Left Ventricle The left ventricle is normal size. There is normal LV segmental wall motion. Moderate concentric left ventricular hypertrophy. Left ventricular systolic function is normal. The left ventricular ejection fraction is within the normal range. LVEF is 55-60%. Moderate diastolic dysfunction is present (pseudonormal filling). Right Ventricle The right ventricle is normal size. The right ventricular systolic function is normal. [facility] [address] [place] [address] 2 D/M-MODE ECHOCARDIOGRAM Name: ELISABETHESTHELARAMIREZ Pascual Room #: 217-P [facility] IN .R.#: [id number] Admission: 12/16/20 Attend Phys: Jessica Jarrett, Discharge: Date of : 47 Report #: [id number] The left atrium size is normal. The right atrium size is normal. Aortic Valve The aortic valve is normal in structure. No aortic regurgitation is present. There is no aortic valvular stenosis. Mitral Valve The mitral valve is normal in structure. Trace mitral regurgitation. No evidence of mitral valve stenosis. Tricuspid Valve The tricuspid valve is normal in structure. Trace tricuspid regurgitation. Pulmonary artery pressure is 35 mmHg. Pulmonic Valve The pulmonary valve is normal in structure. Trace pulmonic regurgitation. Great Vessels The aortic root is normal in size. The ascending aorta is normal in size. IVC is normal in size and collapses >50% with inspiration. Pericardium There is no pericardial effusion. <Conclusion> Normal left ventricular size with moderate concentric hypertrophy Ejection fraction 60% grade 3 Normal right ventricle size/function Normal atrial size Color-flow Doppler study was performed of the aortic/mitral/tricuspid/pulmonary valve Normal aortic valve structure and function Trace mitral valve insufficiency Trace tricuspid valve insufficiency Pulmonary systolic pressure estimated 35 mmHg No pericardial effusion Normal aortic root size. <ELECTRONICALLY SIGNED> By: Tho Lockhart MD, FACC 12/16/20 160 01 01 Tho Lockhart MD, FACC /INF
--- NOTE | 2020-12-16 18:07 | NUR ---
PT ADMITTED FOR CHEST PAIN AND HTN EMERGENCY, PT STABLE AT THIS TIME AND DENIES PAIN OR DISCOMFORT. STEADY WITH AMBULTION. NO SIGNS OF DISTRESS NOTED. PT STATES SHES LOOKING FORWARD TO THE HEART WORK UP BECAUSE SHE IS GETTING OLDER AND ITS BEEN AWHILE. PT DENIES CHEST PAIN
--- NOTE | 2020-12-17 03:00 | NUR ---
PT IS ALERT AND ORIENTED X4. LUNGS ARE CLEAR COMPLAINED OF MUCUS REQUEST BREATHING TREATMENT PER RT. UP TO BATHROOM AD LIDIA VERY LITTLE ASSISTANCE PER NURSING. NPO AFTER MN. GETING A CARDIAC WORK UP TODAY. STRESS TEST. NOT IN ANY PAIN SLEEPING AT THIS TIME. WILL CONTINUE TO MONITOR AND ASSESS PER NURSING. CALL LIGHT WITHIN REACH IF NEEDS ASSISTANCE.
[2020-12-17 04:12] VITALS: BP 138/62
[2020-12-17 08:30] VITALS: BP 142/72
[2020-12-17 09:09] LABS: CALCIUM 8.2 mg/dL (8.5-10.1); CREATININE 1.1 mg/dL (0.6-1.0); MAGNESIUM 2.2 mg/dL (1.8-2.4); PHOSPHORUS 2.9 mg/dL (2.6-4.7)
--- NOTE | 2020-12-17 11:27 | EKG ---
[place] [address] [facility] [place] [address] ELECTROCARDIOGRAM REPORT Name: ESTHELA BARBEROTHY Pascual Room #: 217-P ADM IN M.R.#: [id number] Admission: 12/16/20 Attend Phys: Jessica Jarrett MD Discharge: Date of : 47 Report #: [id number] [facility] ED Test Date: 2020-12-16 Test Time: 06:04:03 Pat Name: RAMIREZ BARBER Department: Room: 217 Gender: F Physiology Teacher: lorne : 1945 Requested By: Ken Kelley Order Number: [id number] MD: Tho Lockhart Measurements Intervals [place] Rate: 65 P: -23 MS: 230 QRS: -39 QRSD: 126 T: 8 QT: 429 QTc: 447 Interpretive Statements Sinus rhythm Prolonged MS interval Nonspecific IVCD with LAD Left ventricular hypertrophy Compared to ECG 10/07/2020 00:48:11 First degree AV block now present Left ventricular hypertrophy now present T-wave abnormality no longer present Electronically Signed On 12-17-2020 11:27:06 CDT by Tho Lockhart [email or web address] <ELECTRONICALLY SIGNED> By: Tho Lockhart MD, FAC 12/17/20 1127 0604 0604 Tho Lockhart MD, [facility] /EPI
[2020-12-17 16:35] VITALS: BP 150/68
[2020-12-17 20:24] VITALS: BP 136/59; BP 136/69
[2020-12-18 03:16] LABS: ABSOLUTE NEUTROPHILS 2.6 thou/uL (1.4-8.2); BASOPHILS 0.7 % (0.0-2.0); EOSINOPHILS 3.4 % (0.0-3.0); HEMATOCRIT 26.2 % (37.0-47.0); HEMOGLOBIN 8.3 gm/dL (12.0-15.0); LYMPHOCYTES 33.2 % (24.0-44.0); MCH 25.8 pg (26.0-34.0); MCHC 31.8 g/dL (28.0-37.0); MCV 81.3 fL (80.0-100.0); MONOCYTES 8.9 % (1.0-8.0); PLATELET COUNT 225 thou/uL (150-400); POLYS 53.8 % (36.0-66.0); RBC 3.23 mil/uL (4.20-5.00); RDW 15.7 % (10.5-14.5); WBC 4.8 thou/uL (4.0-11.0)
[2020-12-18 03:28] LABS: CALCIUM 8.5 mg/dL (8.5-10.1); CREATININE 1.2 mg/dL (0.6-1.0); POTASSIUM 4.3 mmol/L (3.5-5.1)
[2020-12-18 05:25] VITALS: BP 140/76
[2020-12-18 07:55] VITALS: BP 142/79
--- NOTE | 2020-12-18 08:22 | NUR ---
PATIENT PROGRESSING TOWARDS GOALS, NUCLEAR MED TEST PLANED FOR 12/18/20. PATENT HAS BEEN NPO SINCE MIDNIGHT, NOT CAFFINE SINCE DINNER MEAL ONLY A COUPLE OF SIPS OF COLA AND THE REST WAS THROWN OUT PER PT. REPORT PRIOR TO 8 PM. D5 15 NS SHOULD BE ABLE TO BE STOPPED FOR NUCLEAR MEDICINE AND HER IV SL. PT HEAD BEEN ANXIOUS ABOUT HER BLOOD SUGAR DROPPING IF SHE COULD NOT EAT. SHE WAS EDUCATED THAT HER IV HAD THE SUGAR SHE NEEDED TO MAINTAIN HER BLOOD GLUCOSE AND HER ACCU CHECKS WOULD BE MONITORED. PATIENT WAS ABLE TO MAINTAIN BLOOD PRESSURE 140-160/56-60. C/O OF LEFT SIDE HEADACHE AND INNER EAR PAIN. TYLENOL GIVEN AND ONLY HELPED MILDLY.
[2020-12-18] MEDS ORDERED: ADULT LOW DOSE81 MG PO (11:41)
[2020-12-18] MEDS ORDERED: COREG6.25 MG PO (11:41)
[2020-12-18] MEDS ORDERED: MAGOX 400400 MG PO (11:41)
[2020-12-18] MEDS ORDERED: BENICAR40 MG PO (12:07)
[2020-12-18 12:20] VITALS: BP 179/92
[2020-12-18] MEDS ORDERED: CLONIDINE HCL0.1 MG PO (13:56)
[2020-12-18 14:23] VITALS: BP 146/59
[2020-12-18 16:00] VITALS: BP 145/77
[2020-12-18 16:34] VITALS: BP 145/77
--- NOTE | 2020-12-18 17:41 | NUR ---
ASSUMED PATIENT CARE AT 0700. PATIENT NPO FOR STRESS TEST. PATIENT TRANSPORTED TO [facility] AT 0930. ARRIVED BACK TO ROOM AT 1200, NO ISSUES DURING CARDIAC STRESS TEST. PATIENT WAS HYPERTNESIVE, SEE DOCUMENTATION. AFTER RECIEVING PO MEDICATIONS BLOOD PRESSURE NORMALIZED. OK TO DISCHARGE PER PRIMARY TEAM. IV REMOVED. PATIENT ESCORTED OUT TO [employer] CAR AT 1725. BELONGINGS SENT WITH PATIENT INCLUDING PURSE AND CELL PHONE.
--- NOTE | 2020-12-19 08:03 | NUR ---
Note Given: Y Facility List Provided:Y Facility Bin: None chosen at this time Dedra Ulrich Np discussed BPCI with this pt 12/18/20
== END 2020-12-18 17:32 | disposition home or self-care (01) | DRG 305 ==
LOC: ER 05:51 → 2N 07:59 → EROBS 07:59 → 2N 14:39
PROVIDERS: Emergency Medicine; ADMIT Internal Medicine; ATTEND Internal Medicine
DX: I16.0 Hypertensive urgency (principal); I12.9 Hypertensive chronic kidney disease with stage 1 through stage 4 chronic kidney disease, or unspecified chronic kidney disease; E87.6 Hypokalemia; I20.9 Angina pectoris, unspecified; E83.42 Hypomagnesemia; D86.9 Sarcoidosis, unspecified; F41.1 Generalized anxiety disorder; N18.30 Chronic kidney disease, stage 3 unspecified; E11.22 Type 2 diabetes mellitus with diabetic chronic kidney disease; D63.1 Anemia in chronic kidney disease; K21.9 Gastro-esophageal reflux disease without esophagitis; N28.9 Disorder of kidney and ureter, unspecified; Z86.16 Personal history of COVID-19; Z79.899 Other long term (current) drug therapy; Z88.8 Allergy status to other drugs, medicaments and biological substances
CPT/HCPCS: 10081

== ENCOUNTER 2021-01-04 21:28 | Emergency (ER) | payer OTHER ==
[~2021-01-04] VITALS: Ht 170.2 cm; Wt 80.7 kg
[~2021-01-04 21:28] MED LIST changes: +ADULT LOW DOSE81 MG PO; +BENICAR40 MG PO; +CLONIDINE HCL0.1 MG PO; +COREG6.25 MG PO; +MAGOX 400400 MG PO
[2021-01-04 22:32] LABS: ABSOLUTE NEUTROPHILS 2.1 thou/uL (1.4-8.2); BASOPHILS 0.8 % (0.0-2.0); EOSINOPHILS 5.3 % (0.0-3.0); HEMATOCRIT 30.6 % (37.0-47.0); HEMOGLOBIN 10.2 gm/dL (12.0-15.0); LYMPHOCYTES 35.4 % (24.0-44.0); MCH 27.2 pg (26.0-34.0); MCHC 33.4 g/dL (28.0-37.0); MCV 81.6 fL (80.0-100.0); PLATELET COUNT 232 thou/uL (150-400); POLYS 46.5 % (36.0-66.0); RBC 3.76 mil/uL (4.20-5.00); RDW 15.5 % (10.5-14.5); WBC 4.6 thou/uL (4.0-11.0)
[2021-01-04 22:35] LABS: ANION GAP 9 mmol/L (7-16); BUN 21 mg/dL (7-18); CALCIUM 8.8 mg/dL (8.5-10.1); CHLORIDE 107 mmol/L (98-107); CO2 28 mmol/L (21-32); CREATININE 1.3 mg/dL (0.6-1.0); GLUCOSE 113 mg/dL (74-106); POTASSIUM 3.6 mmol/L (3.5-5.1); SODIUM 144 mmol/L (136-145)
[2021-01-04 22:49] LABS: TROPONIN-I <0.06 ng/mL (<0.06)
[2021-01-04 23:50] VITALS: BP 157/56
--- NOTE | 2021-01-05 16:52 | EKG ---
[facility] [email or web address] [address] ELECTROCARDIOGRAM REPORT Name: RAMIREZ BARBER [facility] [id number] Admission: 01/04/21 Attend Phys: Discharge: 01/04/21 Date of : 47 Report #: [id number] [facility] ED Test Date: 2021-01-04 Test Time: 21:45:37 Pat Name: RAMIREZ BARBER Department: Room: Gender: F Tamper Operator: AIDA : 1945 Requested By: Viet Martinez Order Number: [id number] MD: Alexis Saldana Measurements Intervals [place] Rate: 61 P: -18 CT: 252 QRS: -43 QRSD: 129 T: 2 QT: 443 QTc: 447 Interpretive Statements Sinus rhythm Prolonged CT interval Nonspecific IVCD with LAD Compared to ECG 12/16/2020 06:04:03 No significant changes Electronically Signed On 01-05-2021 16:52:13 CDT by Alexis Saldana [email or web address] <ELECTRONICALLY SIGNED> By: Alexis Saldana MD, [facility] 01/05/21 1652 2145 2145 Alexis Saldana MD, [facility] /EPI
== END 2021-01-04 23:50 | disposition home or self-care (01) ==
LOC: ER 21:28
PROVIDERS: Nurse Practitioner
DX: R07.89 Other chest pain (principal); I12.9 Hypertensive chronic kidney disease with stage 1 through stage 4 chronic kidney disease, or unspecified chronic kidney disease; E11.22 Type 2 diabetes mellitus with diabetic chronic kidney disease; N18.9 Chronic kidney disease, unspecified; Z88.1 Allergy status to other antibiotic agents; Z88.8 Allergy status to other drugs, medicaments and biological substances; Z79.899 Other long term (current) drug therapy; Z79.82 Long term (current) use of aspirin; Z98.890 Other specified postprocedural states

== ENCOUNTER 2021-01-10 11:02 | Emergency (ER) | payer OTHER ==
[~2021-01-10] VITALS: Ht 170.2 cm; Wt 79.4 kg
[2021-01-10 12:47] LABS: ABSOLUTE NEUTROPHILS 2.6 thou/uL (1.4-8.2); BASOPHILS 1.7 % (0.0-2.0); EOSINOPHILS 3.1 % (0.0-3.0); HEMATOCRIT 32.2 % (37.0-47.0); HEMOGLOBIN 10.5 gm/dL (12.0-15.0); LYMPHOCYTES 35.8 % (24.0-44.0); MCH 26.1 pg (26.0-34.0); MCHC 32.5 g/dL (28.0-37.0); MCV 80.3 fL (80.0-100.0); PLATELET COUNT 261 thou/uL (150-400); POLYS 53.4 % (36.0-66.0); RBC 4.01 mil/uL (4.20-5.00); RDW 14.8 % (10.5-14.5); WBC 4.9 thou/uL (4.0-11.0)
[2021-01-10 12:49] LABS: URINE BILIRUBIN NEGATIVE (Negative); URINE BLOOD NEGATIVE (Negative); URINE CLARITY CLEAR; URINE COLOR YELLOW; URINE GLUCOSE-RANDOM* NEGATIVE (Negative); URINE KETONES NEGATIVE (Negative); URINE LEUKOCYTES-REFLEX TRACE (Negative); URINE NITRITE-REFLEX NEGATIVE (Negative); URINE PROTEIN (DIPSTICK) NEGATIVE (Negative); URINE SPECIFIC GRAVITY 1.015 (1.005-1.035); URINE UROBILINOGEN 0.2 E.U./dl (0.2-1.0)
[2021-01-10 13:04] LABS: ANION GAP 8 mmol/L (7-16); BUN 13 mg/dL (7-18); CALCIUM 9.1 mg/dL (8.5-10.1); CHLORIDE 107 mmol/L (98-107); CO2 29 mmol/L (21-32); CREATININE 1.1 mg/dL (0.6-1.0); GLUCOSE 102 mg/dL (74-106); POTASSIUM 3.8 mmol/L (3.5-5.1); SODIUM 144 mmol/L (136-145)
[2021-01-10 13:09] LABS: ALBUMIN 3.7 g/dL (3.4-5.0); SGOT 17 U/L (15-37); SGPT 23 U/L (14-59); TOTAL PROTEIN 7.5 g/dL (6.4-8.2); TROPONIN-I <0.06 ng/mL (<0.06)
[2021-01-10 13:32] VITALS: BP 125/68
--- NOTE | 2021-01-10 17:37 | EKG ---
[facility] [address] ELECTROCARDIOGRAM REPORT Name: RAMIREZ BARBER [facility] [id number] Admission: 01/10/21 Attend Phys: Discharge: 01/10/21 Date of : 47 Report #: [id number] [facility] ED Test Date: 2021-01-10 Test Time: 11:21:48 Pat Name: RAMIREZ BARBER Department: Room: Gender: F Prosthetic Aide: IRMA : 1945 Requested By: Bonifacio Meehan Order Number: [id number] MD: Alexis Saldana Measurements Intervals [place] Rate: 54 P: -34 NH: 247 QRS: -38 QRSD: 122 T: -11 QT: 441 QTc: 418 Interpretive Statements Sinus bradycardia Prolonged NH interval Nonspecific IVCD with LAD Borderline T abnormalities, inferior leads Baseline wander in lead(s) V1 Compared to ECG 01/04/2021 21:45:37 Left ventricular hypertrophy now present Nonspecific change in the ST and T wave segments Electronically Signed On 01-10-2021 17:37:15 CDT by Alexis Saldana [email or web address] <ELECTRONICALLY SIGNED> By: Alexis Saldana MD, [facility] 01/10/21 1737 1121 1121 Alexis Saldana MD, [facility] /EPI
== END 2021-01-10 13:33 | disposition home or self-care (01) ==
LOC: ER 11:02
PROVIDERS: Physician Assistant
DX: I12.9 Hypertensive chronic kidney disease with stage 1 through stage 4 chronic kidney disease, or unspecified chronic kidney disease (principal); E11.22 Type 2 diabetes mellitus with diabetic chronic kidney disease; N18.9 Chronic kidney disease, unspecified; F41.9 Anxiety disorder, unspecified; K21.9 Gastro-esophageal reflux disease without esophagitis; Z88.1 Allergy status to other antibiotic agents; Z88.8 Allergy status to other drugs, medicaments and biological substances; Z79.899 Other long term (current) drug therapy; Z79.82 Long term (current) use of aspirin

== ENCOUNTER → 2021-02-13 | Outpatient (CLI) | payer OTHER | LOC: SJCVC 09:53 | PROVIDERS: ATTEND Internal Medicine | DX: I10 Essential (primary) hypertension (principal); E11.9 Type 2 diabetes mellitus without complications; F41.9 Anxiety disorder, unspecified; Z88.1 Allergy status to other antibiotic agents; Z79.82 Long term (current) use of aspirin; Z79.899 Other long term (current) drug therapy ==

== ENCOUNTER → 2021-03-13 | Outpatient (CLI) | payer OTHER | LOC: SJCVC 10:05 | PROVIDERS: ATTEND Internal Medicine | DX: I11.9 Hypertensive heart disease without heart failure (principal); D86.0 Sarcoidosis of lung; F41.9 Anxiety disorder, unspecified; E11.9 Type 2 diabetes mellitus without complications; Z79.4 Long term (current) use of insulin; Z79.899 Other long term (current) drug therapy; Z88.8 Allergy status to other drugs, medicaments and biological substances; Z88.1 Allergy status to other antibiotic agents ==

== ENCOUNTER → 2021-04-04 | Outpatient (CLI) | payer OTHER | LOC: SJCVC 10:00 | PROVIDERS: ATTEND Internal Medicine | DX: I11.9 Hypertensive heart disease without heart failure (principal); D86.0 Sarcoidosis of lung; E11.9 Type 2 diabetes mellitus without complications; Z88.8 Allergy status to other drugs, medicaments and biological substances; Z79.82 Long term (current) use of aspirin; Z79.4 Long term (current) use of insulin; Z79.899 Other long term (current) drug therapy; Z82.49 Family history of ischemic heart disease and other diseases of the circulatory system ==

== ENCOUNTER 2021-04-09 23:38 | Emergency (ER) | payer OTHER ==
[~2021-04-09] VITALS: Ht 170.2 cm; Wt 79.4 kg
[2021-04-10 04:58] LABS: ANION GAP 4 mmol/L (7-16); BUN 19 mg/dL (7-18); CALCIUM 8.7 mg/dL (8.5-10.1); CHLORIDE 107 mmol/L (98-107); CO2 31 mmol/L (21-32); CREATININE 1.3 mg/dL (0.6-1.0); GLUCOSE 116 mg/dL (74-106); POTASSIUM 3.9 mmol/L (3.5-5.1); SODIUM 142 mmol/L (136-145)
[2021-04-10 05:07] LABS: ALBUMIN 3.2 g/dL (3.4-5.0); SGOT 15 U/L (15-37); SGPT 21 U/L (14-59); TOTAL BILIRUBIN 0.5 mg/dL (0.2-1.0); TOTAL PROTEIN 6.9 g/dL (6.4-8.2); TROPONIN-I <0.06 ng/mL (<0.06)
[2021-04-10 05:18] LABS: ABSOLUTE NEUTROPHILS 5.7 thou/uL (1.4-8.2); BASOPHILS 0.5 % (0.0-2.0); EOSINOPHILS 0.3 % (0.0-3.0); HEMOGLOBIN 9.5 gm/dL (12.0-15.0); LYMPHOCYTES 11.3 % (24.0-44.0); MCH 27.3 pg (26.0-34.0); MCV 80.3 fL (80.0-100.0); MONOCYTES 8.1 % (1.0-8.0); PLATELET COUNT 202 thou/uL (150-400); POLYS 79.8 % (36.0-66.0); RBC 3.49 mil/uL (4.20-5.00); RDW 15.1 % (10.5-14.5); WBC 7.2 thou/uL (4.0-11.0)
[2021-04-10] MEDS ORDERED: ZPAK PO (05:38)
[2021-04-10] MEDS ORDERED: AUGMENTIN 875-1 EACH PO (05:38)
[2021-04-10 05:42] VITALS: BP 149/66
--- NOTE | 2021-04-10 07:40 | EKG ---
[place] [address] [address] [facility] [place] [place] [address] ELECTROCARDIOGRAM REPORT Name: ELISABETHRAMIREZ Garner [id number] Admission: 04/09/21 Attend Phys: Discharge: 04/10/21 Date of : 47 Report #: [id number] [facility] ED Test Date: 2021-04-10 Test Time: 00:23:41 Pat Name: RAMIREZ BARBER Department: Room: Gender: F Tick Eradicator: EDUARD : 1945 Requested By: Cole Cooper Order Number: [id number] MD: Tho Lockhart Measurements Intervals [place] Rate: 55 P: 229 AK: 227 QRS: 222 QRSD: 118 T: 192 QT: 438 QTc: 419 Interpretive Statements Sinus rhythm Prolonged [place] interval Nonspecific intraventricular conduction delay Nonspecific T abnormalities, inferior leads Baseline wander in lead(s) V1,V2 Compared to ECG 01/10/2021 11:21:48 Ectopic atrial rhythm now present Sinus bradycardia no longer present T-wave abnormality still present Electronically Signed On 04-10-2021 7:40:12 CDT by Tho Lockhart [email or web address] <ELECTRONICALLY SIGNED> By: Tho Lockhart MD, [facility] 04/10/21 0740 0023 0023 Tho Lockhart MD, [facility] /EPI
== END 2021-04-10 05:50 | disposition home or self-care (01) ==
LOC: ER 23:38
PROVIDERS: Emergency Medicine
DX: J18.9 Pneumonia, unspecified organism (principal); Z20.822 Contact with and (suspected) exposure to COVID-19; Z79.899 Other long term (current) drug therapy; Z88.1 Allergy status to other antibiotic agents

== ENCOUNTER → 2021-04-16 | Outpatient (CLI) | payer OTHER ==
[~2021-04-16] MED LIST changes: +AUGMENTIN 875-1 EACH PO
== END ==
LOC: RAD 16:56
PROVIDERS: ATTEND Internal Medicine
DX: R91.8 Other nonspecific abnormal finding of lung field (principal); J18.9 Pneumonia, unspecified organism; I51.7 Cardiomegaly

== ENCOUNTER 2021-04-21 19:17 | Inpatient (IN) | payer OTHER ==
[~2021-04-21] VITALS: Ht 170.2 cm; Wt 79.1 kg
[2021-04-21 19:28] VITALS: BP 170/74
[2021-04-21 20:38] LABS: URINE BILIRUBIN NEGATIVE (Negative); URINE BLOOD NEGATIVE (Negative); URINE CLARITY CLEAR; URINE COLOR YELLOW; URINE GLUCOSE-RANDOM* NEGATIVE (Negative); URINE KETONES NEGATIVE (Negative); URINE LEUKOCYTES-REFLEX NEGATIVE (Negative); URINE PROTEIN (DIPSTICK) NEGATIVE (Negative); URINE SPECIFIC GRAVITY >= 1.030 (1.005-1.035); URINE UROBILINOGEN 0.2 E.U./dl (0.2-1.0)
[2021-04-21 20:39] LABS: HEMATOCRIT 29.9 % (37.0-47.0); MCH 26.5 pg (26.0-34.0); MCHC 33.6 g/dL (28.0-37.0); RBC 3.78 mil/uL (4.20-5.00); RDW 15.2 % (10.5-14.5); WBC 6.3 thou/uL (4.0-11.0)
[2021-04-21 20:39] LABS: URINE NITRITE-REFLEX POSITIVE (Negative)
[2021-04-21 20:47] LABS: ANION GAP 7 mmol/L (7-16); BUN 15 mg/dL (7-18); CALCIUM 8.9 mg/dL (8.5-10.1); CHLORIDE 109 mmol/L (98-107); CO2 30 mmol/L (21-32); CREATININE 1.9 mg/dL (0.6-1.0); GLUCOSE 141 mg/dL (74-106); POTASSIUM 4.4 mmol/L (3.5-5.1); SODIUM 146 mmol/L (136-145)
[2021-04-21 20:49] LABS: MUCUS 0-3 Light strn/LPF (None Seen); SQUAMOUS >10 Many /LPF (0-3)
[2021-04-21 20:50] LABS: BACTERIA-REFLEX None Seen /HPF (None Seen); CASTS None Seen /LPF (None Seen); CRYSTALS None Seen /LPF (None Seen); URINE RBC None Seen /HPF (NONE SEEN); URINE WBC-REFLEX 0-5 Rare /HPF (0-5)
[2021-04-21 20:57] LABS: ALBUMIN 3.4 g/dL (3.4-5.0); SGOT 15 U/L (15-37); SGPT 13 U/L (30-65); TOTAL BILIRUBIN 0.6 mg/dL (0.2-1.0); TOTAL PROTEIN 7.6 g/dL (6.4-8.2); TROPONIN-I <0.06 ng/mL (<0.06)
[2021-04-21 22:11] VITALS: BP 175/74
[2021-04-21 22:33] VITALS: BP 176/80
[2021-04-21 23:03] VITALS: BP 159/87
[2021-04-22] MEDS ORDERED: CARVEDILOL25 MG PO (00:41)
--- NOTE | 2021-04-22 01:19 | NUR ---
Pt admitted from ED @2300 with PNA. A/OX4,VSS. Denies pain on assessment but complain of a burning sensation on under left breast from the PNA. Up with SBA/cane,weak. Has dyspnea on exertion,cough. Skin intact. Continent of B&B. Reports hasn't been taking most of her home meds d/t the PNA,provider notified. Fall safety reinforced agrees to call for help as needed.
[2021-04-22 06:17] LABS: HEMATOCRIT 30.3 % (37.0-47.0); HEMOGLOBIN 10.1 gm/dL (12.0-15.0); MCH 26.7 pg (26.0-34.0); MCHC 33.2 g/dL (28.0-37.0); MCV 80.5 fL (80.0-100.0); RBC 3.77 mil/uL (4.20-5.00); RDW 15.4 % (10.5-14.5); WBC 6.3 thou/uL (4.0-11.0)
[2021-04-22 06:40] LABS: CALCIUM 8.8 mg/dL (8.5-10.1); CREATININE 1.8 mg/dL (0.6-1.0); POTASSIUM 3.7 mmol/L (3.5-5.1)
[2021-04-22 08:40] VITALS: BP 159/70
--- NOTE | 2021-04-22 09:22 | EKG ---
[place] [address] [facility] [place] [address] ELECTROCARDIOGRAM REPORT Name: ELISABETHRAMIREZ Pascual Room #: 449-I ADM IN .R.#: [id number] Admission: 04/21/21 Attend Phys: Jessica Jarrtet MD Discharge: Date of : 47 Report #: [id number] [facility] ED Test Date: 2021-04-21 Test Time: 19:23:00 Pat Name: RAMIREZ BARBER Department: Room: [facility] Gender: F Drafting Technician: JCHAIREZ : 1945 Requested By: Aurelia Aguero Order Number: [id number] MD: Tho Lockhart Measurements Intervals [place] Rate: 65 P: -62 ME: 232 QRS: -44 QRSD: 124 T: 0 QT: 420 QTc: 437 Interpretive Statements Sinus or ectopic atrial rhythm Prolonged ME interval Nonspecific IVCD with LAD Left ventricular hypertrophy Compared to ECG 04/10/2021 00:23:41 Ectopic atrial rhythm now present Left ventricular hypertrophy now present Sinus rhythm no longer present T-wave abnormality no longer present Electronically Signed On 04-22-2021 9:22:44 CDT by Tho Lockhart [email or web address] <ELECTRONICALLY SIGNED> By: Tho Lockhart MD, FAC 04/22/21921 22 22 Tho Lockhart MD, [facility] /EPI
--- NOTE | 2021-04-22 12:53 | NUR ---
ASSUMED PT CARE THIS AM. PT IS ALERT & ORIENTED X4 AND ANXIOUS AT TIMES. PT HAS IV SITE ON L AC 22 GAUGE. PT IS UP WITH ASSIST WITH CANE TO THE BATHROOM. PT IS ON ROOM AIR AND HAS BREATHING TREATMENT. PT TOLERATED MEDICATION AND DIET WELL. NO C/O NAUSEA AND VOMITING DURING THE SHIFT. EDUCATED PT ABOUT BP MEDICATION THIS AM. PT ON THE BED, BED ON THE LOWEST POSITION, SIDE RAILS UP, CALL LIGHT WITHIN REACH. WILL CONTINUE TO MONITOR PT. FOLLOW POC.
[2021-04-22 17:02] VITALS: BP 166/81
[2021-04-22 19:04] VITALS: BP 155/75
--- NOTE | 2021-04-23 02:54 | NUR ---
Assumed pt care at 1900. A/OX4,VSS.Denies N/V,some tenderness on left lower chest. Up with SBA. Had questions regarding antibiotics dozing,explained the frequency of antibiotics,verbalized understanding with no further questions. Fall precautions in place,reminded to call as needed for help.
[2021-04-23 06:36] LABS: HEMATOCRIT 28.9 % (37.0-47.0); HEMOGLOBIN 9.3 gm/dL (12.0-15.0); MCH 25.9 pg (26.0-34.0); MCHC 32.2 g/dL (28.0-37.0); MCV 80.5 fL (80.0-100.0); RBC 3.59 mil/uL (4.20-5.00); WBC 12.7 thou/uL (4.0-11.0)
[2021-04-23 07:18] LABS: CALCIUM 8.9 mg/dL (8.5-10.1); POTASSIUM 3.9 mmol/L (3.5-5.1)
[2021-04-23 07:49] VITALS: BP 161/67
--- NOTE | 2021-04-23 09:32 | NUR ---
ORDERS RECEIVED FOR PT EVAL AND TREAT. Pt ADMITTED FOR CAP W/ FAILED OP TREATMENT AND JAELYN. Pt LIVES ALONE, [address] [place] W/ HR, USES CANE. Pt REFUSING TO WORK W/ PT. STATED THAT SHE FELL AT HER LAST ADMISSION W/ 'TWO MEN.' STATED SHE LIKES WOMEN AND THAT THIS PT HAS BEEN GREAT BUT STILL REFUSING FORMAL PT EVAL. STATED SHE WALKS BY HERSELF BUT THAT SHE DOES GET A LITTLE DIZZY. TRANSPORT PRESENT TO TAKE Pt TO XRAY. Pt NOTED TO BE INDEP W/ BED MOB AND SIT>STAND. AMB TO BATHROOM W/ HER CANE AND PURSE ON HER SHOULDER W/O ISSUES NOTED. UP TO W/C W/ TRANSPORT STAFF TO GO TO XRAY. NOTIFIED RN ABOUT MOBILITY THAT WAS OBSERVED. IF MOBILITY STATUS CHANGES, PLEASE CONSIDER RE-CONSULTING PT SERVICES. BUT AT THIS TIME, PT TO SIGN OFF D/T Pt REFUSAL.
--- NOTE | 2021-04-23 12:09 | NUR ---
ASSUMED PT CARE THIS AM. PT A&OX4, ABLE TO MAKE NEEDS KNOWN. PATIENT HAS NO COMPLAINTS OF PAIN. PATIENT UP WITH ASSIST AROUND ROOM. PATIENT REMAINS CONTINENT. HAS A DRY COUGH. PATIENT REPORTS NON UMBNESS OR TINGLING. MEDICATIONS TAKEN WITHOUT ISSUE. IV PATENT, SALINE LOCKED. FALL PRECAUTIONS ARE IN PLACE, CALL LIGHT WITHIN REACH.
[2021-04-23 16:49] VITALS: BP 164/73
[2021-04-23 19:31] VITALS: BP 152/64
[2021-04-23 23:15] LABS: ABSOLUTE NEUTROPHILS 11.8 thou/uL (1.4-8.2); BASOPHILS 0.3 % (0.0-2.0); EOSINOPHILS 0.3 % (0.0-3.0); HEMATOCRIT 22.8 % (37.0-47.0); HEMOGLOBIN 7.4 gm/dL (12.0-15.0); LYMPHOCYTES 4.2 % (24.0-44.0); MCH 25.8 pg (26.0-34.0); MCHC 32.6 g/dL (28.0-37.0); MCV 79.2 fL (80.0-100.0); MONOCYTES 1.7 % (1.0-8.0); PLATELET COUNT 235 thou/uL (150-400); POLYS 93.5 % (36.0-66.0); RBC 2.88 mil/uL (4.20-5.00); RDW 15.3 % (10.5-14.5); WBC 12.6 thou/uL (4.0-11.0)
--- NOTE | 2021-04-24 03:35 | NUR ---
Assumed pt care at 1900. A/OX4,VSS. Denies pain on assessment. Up with SBA/cane. Does have a non productive,PO intake encouraged. Took all meds as ordered. IV infiltrated on LAC,24 gauge reinserted on right wrist with 2 attempts and Abts infused. Continent of B&B. Resting quietly at this time w/o any distress noted.
[2021-04-24 06:03] LABS: HEMATOCRIT 26.8 % (37.0-47.0); MCH 26.6 pg (26.0-34.0); MCHC 33.6 g/dL (28.0-37.0); MCV 79.1 fL (80.0-100.0); RBC 3.4 mil/uL (4.20-5.00); RDW 15.2 % (10.5-14.5); WBC 14.1 thou/uL (4.0-11.0)
[2021-04-24 06:09] LABS: CALCIUM 8.4 mg/dL (8.5-10.1); CREATININE 1.9 mg/dL (0.6-1.0); POTASSIUM 4.4 mmol/L (3.5-5.1)
[2021-04-24 07:17] VITALS: BP 143/72
--- NOTE | 2021-04-24 10:52 | NUR ---
ASSUMED PT CARE THIS AM. PT A&OX4, ABLE TO MAKE NEEDS KNOWN. IV PATENT, MEDICATIONS GIVEN PO AND IV WITHOUT ISSUE. PATIENT REMAINS CONTINENT, UP TO BATHROOM WITH ASSIST. PATIENT IS ON ROOM AIR. FALL PRECAUTIONS ARE IN PLACE. CALL LIGHT WITHIN REACH. PATIENT DENIES PAIN, NUMBNESS, OR TINGLING.
[2021-04-24 16:02] VITALS: BP 146/61
[2021-04-24 19:05] VITALS: BP 152/63
[2021-04-25 03:16] LABS: HEMATOCRIT 27.8 % (37.0-47.0); HEMOGLOBIN 9.4 gm/dL (12.0-15.0); MCH 26.6 pg (26.0-34.0); MCHC 33.8 g/dL (28.0-37.0); MCV 78.7 fL (80.0-100.0); RBC 3.53 mil/uL (4.20-5.00); RDW 15.2 % (10.5-14.5); WBC 9.8 thou/uL (4.0-11.0)
[2021-04-25 03:37] LABS: CALCIUM 8.4 mg/dL (8.5-10.1); CREATININE 1.9 mg/dL (0.6-1.0); POTASSIUM 3.9 mmol/L (3.5-5.1)
--- NOTE | 2021-04-25 06:51 | NUR ---
Assumed pt's care this pm shift. Alert and oriented. VSS on RA. Meds given per emar. Pt denied insulin at HS with BG 312. Education provided on ACHS bg check and SS. Pt asking if she's undergoing any procedures today. None seen in the plan at this time. Will update pt if new plan available. Fall precaution in place. Call light within reach. Will continue to monitor.
[2021-04-25 08:40] VITALS: BP 168/76
--- NOTE | 2021-04-25 11:43 | NUR ---
A/O x 4. Room air. Stand by assist. She uses her cane. No current complaints of pain. Right wrist IV patent and flushes well.
[2021-04-25] MEDS ORDERED: MUCINEX600 MG PO (11:47)
[2021-04-25] MEDS ORDERED: LEVOFLOXACIN750 MG PO (11:47)
[2021-04-25] MEDS ORDERED: PREDNISONE 20 M20 MG PO (11:47)
--- NOTE | 2021-04-25 12:08 | NUR ---
Case opened to follow for dc planning needs. Case discussed with the care team. Fuse Spooler visited with the pt at bedside. She is a&ox4 and indicates she lives with her dtr/son ida and grandsons. They all help take care of each other. She drives and is indep with gait/adl's and IADLS. She reports that she does the shopping and laundry. Her son is law is having serious health issues right now and her dtr is unemployed. Her grandsons are home from college for another month. She is reports hx of sarcoidosis and uses a cane for short distance gait. She has to pace her self for activities but she remains motivated and indep. She may be dcing home later today with outpt f/u. Pt has fungal infections/pneumonia and is feeling better. F/u care per pulmonary. The pt reports mutliple sets of stairs at home as well but is able to manage them on her own. She denies any dc concerns or needs at this time.
[2021-04-25 14:20] VITALS: BP 168/76
[2021-04-25 15:05] VITALS: BP 146/56
[2021-04-25 16:59] VITALS: BP 146/56
== END 2021-04-25 18:40 | disposition home or self-care (01) | DRG 682 ==
LOC: ER 19:17 → 4W 21:40 → EROBS 21:40 → 4W 22:40
PROVIDERS: Hospitalist; Nurse Practitioner Family; ADMIT Internal Medicine; ATTEND Internal Medicine
DX: N17.9 Acute kidney failure, unspecified (principal); J18.9 Pneumonia, unspecified organism; J44.1 Chronic obstructive pulmonary disease with (acute) exacerbation; J44.0 Chronic obstructive pulmonary disease with (acute) lower respiratory infection; Z20.822 Contact with and (suspected) exposure to COVID-19; I10 Essential (primary) hypertension; F41.9 Anxiety disorder, unspecified; D86.9 Sarcoidosis, unspecified; R53.81 Other malaise; K21.9 Gastro-esophageal reflux disease without esophagitis; Z88.1 Allergy status to other antibiotic agents; Z88.8 Allergy status to other drugs, medicaments and biological substances; Z79.899 Other long term (current) drug therapy
CPT/HCPCS: 10040

== ENCOUNTER 2021-05-07 09:56 | Inpatient (IN) | payer OTHER ==
[~2021-05-07] VITALS: Ht 170.2 cm; Wt 91.9 kg
[~2021-05-07 09:56] MED LIST changes: +CARVEDILOL25 MG PO; +LEVOFLOXACIN750 MG PO; +PREDNISONE 20 M20 MG PO
[2021-05-07 10:02] VITALS: BP 173/83
--- NOTE | 2021-05-07 10:18 | NUR ---
PAGED IV TEAM TO PLACE LINE, PATIENT REPORTS LAST ED VISIT SHE WAS STUCK OVER 20 TIMES AND WOULD LIKE IV TEAM TO PLACE LINE.
--- NOTE | 2021-05-07 10:28 | NUR ---
ATTEMPTING EKG, MACHINE NOT WORKING, CHARGE NOTIFIED.
--- NOTE | 2021-05-07 10:57 | NUR ---
IV TEAM AT THE BEDSIDE ATTEMPTING TO PLACE IV.
[2021-05-07 12:29] LABS: ABSOLUTE NEUTROPHILS 4.6 thou/uL (1.4-8.2); BASOPHILS 0.5 % (0.0-2.0); HEMATOCRIT 27.3 % (37.0-47.0); HEMOGLOBIN 8.8 gm/dL (12.0-15.0); LYMPHOCYTES 15.2 % (24.0-44.0); MCH 26.2 pg (26.0-34.0); MCHC 32.4 g/dL (28.0-37.0); PLATELET COUNT 184 thou/uL (150-400); POLYS 67.3 % (36.0-66.0); RBC 3.37 mil/uL (4.20-5.00); RDW 15.9 % (10.5-14.5); WBC 6.8 thou/uL (4.0-11.0)
[2021-05-07 12:45] LABS: APTT 27.6 Seconds (24.5-32.8); INR 0.95; PROTIME 10.4 Seconds (10.5-12.1); TROPONIN-I 0.11 ng/mL (<0.06)
[2021-05-07 12:50] LABS: CALCIUM 8.2 mg/dL (8.5-10.1); CREATININE 1.6 mg/dL (0.6-1.0); POTASSIUM 3.6 mmol/L (3.5-5.1)
--- NOTE | 2021-05-07 12:52 | EKG ---
[place] [address] [facility] [place] [address] ELECTROCARDIOGRAM REPORT Name: RAMIREZ BARBER [id number] Admission: 05/07/21 Attend Phys: Discharge: Date of : 47 Report #: [id number] [facility] ED Test Date: 2021-05-07 Test Time: 10:40:04 Pat Name: RAMIREZ BARBER Department: Room: Gender: F Material Handling Equipment Stevedore: DAWIT : 1945 Requested By: Kendall Daley Order Number: [id number] MD: Tho Lockhart Measurements Intervals [place] Rate: 75 P: -59 SD: 201 QRS: -47 QRSD: 116 T: 43 QT: 406 QTc: 454 Interpretive Statements NSR LAD, consider left anterior fascicular block Left ventricular hypertrophy Compared to ECG 04/21/2021 19:23:00 First degree AV block no longer present Intraventricular conduction delay no longer present Electronically Signed On 05-07-2021 12:52:18 CDT by Tho Lockhart [email or web address] <ELECTRONICALLY SIGNED> By: Tho Lockhart MD, [facility] 05/07/21 1252 1040 1040 Tho Lockhart MD, [facility] /EPI
[2021-05-07 12:57] LABS: ALBUMIN 2.8 g/dL (3.4-5.0); TOTAL BILIRUBIN 0.8 mg/dL (0.2-1.0); TOTAL PROTEIN 6.5 g/dL (6.4-8.2)
--- NOTE | 2021-05-07 13:47 | NUR ---
PAGED FOR RT TO COMPLETE BREATHING TREATMENT.
[2021-05-07 15:00] VITALS: BP 152/69
--- NOTE | 2021-05-07 17:32 | NUR ---
75 year old female with a hx of sarcoidosis and COPD presenting to the ED on 05-07-21 with complaints of SOA. ID NOW testing in the ED shows as negative. Of note patient had and was treated in September of 2020 with Covid Pneumonia. The patient reports vaccination with Moderna 11-30-20 and completed on 01-02-21. The patient reports that she was admitted 2 weeks ago for pneumonia. She was subsequently discharged on a 5 day course of antibiotics and steroids, which she has completed. Pt additionally reports a worsening cough with productive sputum, subjective fever and chills, and progressively worsening generalized weakness. The patient has been admitted with exacerbation of interstitial lung disease and acute/chronic respiratory failure / possible residual Covid pneumonitis / possible HCAP. The patient has been placed on IV Zosyn and IV steroid with sputum culture and pulmonology has been contacted. The patient was last seen by CM on 04-25-21 and discharged to home with her daughter and son in law with their children as she was independent with gait and ADL's. At this admission the patient was treated for fungal and infectious pneumonia. A per last admission the daughter Cindy Jarvis remains as the next of kin at [phone]. The patient's PCP is Dr. Grady. Per ED assessment and MD documentation the patient remains A&O x4. After MD plans of care and treatment plan are established and therapy evaluated; that CM will review for discharge needs. CM will continue to follow.
[2021-05-07 20:10] VITALS: BP 146/62
--- NOTE | 2021-05-08 02:19 | NUR ---
PT AWOKE FROM SLEEP AND C/O SOA WITH SIGNIFICANT WHEEZING NOTED. SPO2 >92% ON 2L NC. CALLED BRAKE HOLDER MARKETING BUSINESS ANALYST FOR HOSPITALIST. ORDER RECEIVED FROM JOVANNI GUNDERSON NP, FOR PRN BREATHING TREATMENT. RT NOTIFIED.
--- NOTE | 2021-05-08 04:26 | NUR ---
PT SLEPT MOST OF THE NIGHT. SHE DOES GET SOA W/ EXERTION. SPO2 STABLE ON 2L NC. BREATHING TX ADMINISTERED BY RT. IVF AND ABX ADMINISTERED ORDERED. SHE DENIED ANY PAIN DURING THE NIGHT. STILL IN ER, WAITING FOR INPATIENT BED. WILL MONITOR FURTHER.
[2021-05-08 06:55] LABS: HEMATOCRIT 25.8 % (37.0-47.0); HEMOGLOBIN 8.5 gm/dL (12.0-15.0); MCH 26.8 pg (26.0-34.0); MCHC 32.9 g/dL (28.0-37.0); MCV 81.5 fL (80.0-100.0); RBC 3.17 mil/uL (4.20-5.00); RDW 15.7 % (10.5-14.5)
[2021-05-08 07:03] LABS: CALCIUM 7.9 mg/dL (8.5-10.1); CREATININE 2.1 mg/dL (0.6-1.0); POTASSIUM 3.6 mmol/L (3.5-5.1)
--- NOTE | 2021-05-08 12:09 | NUR ---
ENTERED CHART TO TELL ED PEDODONTIST WITH PATIENTS BREATHING TREATMENTS ARE DUE
[2021-05-08 15:21] VITALS: BP 119/74
[2021-05-08 15:52] VITALS: BP 174/67
[2021-05-08 16:22] VITALS: BP 168/78
--- NOTE | 2021-05-08 18:14 | NUR ---
PT TO THEUNIT FROM THE ED. ORIENTED TO ROOM AND BEDSPACE. TRACY DIET AND FLUIDS. NO CO'S OF NAUSEA. CO'S OF HEACH DUE TO COUGHING - NO MED AVIALABLE DR YONI BRIONES FOR MEDICATION. ASSESSMENT CHARTED - CARE PLAN INITIATED. MEDS PER DEN - CONSULTS NOTED. NO CO'S AT THE PRESENT TIME.
[2021-05-08 19:16] VITALS: BP 145/74
[2021-05-08 22:38] LABS: BE(vivo) 0.5 mmol/L (-2 to +3); HCO3 27.2 mmol/L (22.0-26.0); PCO2 53.8 mmHg (35.0-45.0); PO2 72.8 mmHg (80.0-100.0); sO2 93.2 % (92.0-98.0)
[2021-05-08 22:39] LABS: pH 7.321 (7.360-7.450)
[2021-05-08 23:45] VITALS: BP 194/74
[2021-05-09] VITALS (10 sets, daily range): BP systolic 144–227; BP diastolic 69–113
--- NOTE | 2021-05-09 06:17 | NUR ---
AT 0530 PATIENT WAS FOUND ON THE FLOOR AFTER HER BED ALARM WENT OFF. THIS PATIENT HAS HAD A VERY RESTLESS NIGHT. PATIENT HAD BEEN PICKED UP OFF THE FLOOR AFTER A PHYSICAL ASSESSMENT FOR INJURY WAS DONE. VS AT 0530 227/113, P102, 02 93%. CALLED A RAT TEAM AND RESPIRATORY CAME WELL. LAWRENCE HAD DONE A STAT ABG EARLIER PH 7.321,KGY628.8, PO2 72.8,HCO3 27.2. HOUSE SUP D/C END OF SHIFT ABG'S. PATIENT HAD A ONE TIME DOES OF HALDOL. THIS FALL WAS NOT WITNESSED. PATIENT FOUND ON FLOOR BY CHARRER.TRY TO CALL FAMILY AND NO ANSWER. WILL TRY AGAIN WHEN THIS PROJECT IS COMPLETED.0630 VS TAKEN AND DOCUMENTED
[2021-05-09 06:52] LABS: BE(vivo) 0.4 mmol/L (-2 to +3); HCO3 28.4 mmol/L (22.0-26.0); PCO2 65.2 mmHg (35.0-45.0); PO2 62.5 mmHg (80.0-100.0); pH 7.257 (7.360-7.450); sO2 87.7 % (92.0-98.0)
--- NOTE | 2021-05-09 08:56 | NUR ---
UPON INTITIAL ASSESSMENT THIS AM PT WAS AGITATED AND WANTING TO LEAVE. PT BULLET SWAGING MACHINE OPERATOR SHIRLEY CAME TO ROOM AND ASSISTED WITH CALMING PT DOWN AND SPOKE WITH FAMILY. AROUND 0830 IN THE AM WHILE REASSESSING PT FOUND HER TO BE LETHARGIC AND LUNG SOUNDS WHEEZY. CALLED RAPID RESPONSE AND PT NOW ON BIPAP. DR. VALLEJO UPDATE PT'S DAUGHTER IN ROOM. WILL CONTINUE TO ASSESS.
--- NOTE | 2021-05-09 09:58 | NUR ---
PT OFF UNIT TO CT WITH JUNIOR PARALEGAL SURESH AND RESPIRATORY THERAPIST.
--- NOTE | 2021-05-09 10:21 | NUR ---
PT RETURN FROM CT.
[2021-05-09 11:07] LABS: BE(vivo) 3.2 mmol/L (-2 to +3); HCO3 29.4 mmol/L (22.0-26.0); PCO2 53.1 mmHg (35.0-45.0); PO2 73.1 mmHg (80.0-100.0); pH 7.361 (7.360-7.450); sO2 93.9 % (92.0-98.0)
--- NOTE | 2021-05-09 12:36 | EKG ---
[address] [place] [address] ELECTROCARDIOGRAM REPORT Name: ESTHELA BARBEROTHY Pascual Room #: 204-P ADM IN M.R.#: [id number] Admission: 05/07/21 Attend Phys: Willis Maldonado MD Discharge: Date of : 47 Report #: [id number] [facility] Test Date: 2021-05-09 Test Time: 08:45:55 Pat Name: RAMIREZ BARBER Department: Room: 204 P Gender: F Clinic Director: IOANA : 1945 Requested By: Willis Maldonado Order Number: [id number] : Tho Lockhart Measurements Intervals [place] Rate: 90 P: 62 CT: 214 QRS: -33 QRSD: 113 T: 37 QT: 371 QTc: 454 Interpretive Statements Sinus rhythm Borderline prolonged CT interval Abnormal R-wave progression, late transition Left ventricular hypertrophy Baseline wander in lead(s) II,III,aVR,aVL,aVF,V1,V2,V3,V4 Compared to ECG 05/07/2021 10:40:04 No significant changes Electronically Signed On 05-09-2021 12:36:09 CDT by Tho Lockhart [email or web address] <ELECTRONICALLY SIGNED> By: Tho Lockhart MD, [facility] 05/09/21 1236 0845 0845 Tho Lockhart MD, [facility] /EPI
[2021-05-09 17:16] LABS: ABSOLUTE NEUTROPHILS 11.3 thou/uL (1.4-8.2); BASOPHILS 0.5 % (0.0-2.0); HEMATOCRIT 26.3 % (37.0-47.0); HEMOGLOBIN 8.4 gm/dL (12.0-15.0); LYMPHOCYTES 3.5 % (24.0-44.0); MCV 81.3 fL (80.0-100.0); MONOCYTES 4.5 % (1.0-8.0); PLATELET COUNT 159 thou/uL (150-400); POLYS 91.5 % (36.0-66.0); RBC 3.24 mil/uL (4.20-5.00); RDW 15.7 % (10.5-14.5); WBC 12.3 thou/uL (4.0-11.0)
--- NOTE | 2021-05-09 17:24 | NUR ---
Patient with rapid response today now on continuos BIPAP. Casemgt to follow for dc needs.
--- NOTE | 2021-05-09 19:27 | NUR ---
PT DID BETTER AFTER BEING ON THE BIPAP. PT NOW MORE AWAKE UT GETTING AGITATED. OBTAIN ORDER TO GIVE IV ATIVAN. UPDATE FAMILY AT BEDSIDE.
[2021-05-10 05:24] VITALS: BP 188/95
--- NOTE | 2021-05-10 06:16 | NUR ---
ASSUME CARE 1900. PT/VITALS STABLE. HR RUNS SOFT. DENIES ANY PAIN. MODERATE TOLERANCE TO ACTIVITY. EXTREMELY SOB WITH MILD ACTIVITY. ASSESSMENT CHARTED. PROGRESSING MODERATELY TOWARDS POC. SB ON MONTOR. PT ON BIPAP FIO2 AT30% SATS 93-94% WHEN RESTING/SLEEPING. PLAN IS TO CONTINUE TO MONITOR AND MANAGE RESP FUNCTION AND CONTINUE ABX THERAPY. WILL CONTINUE TO MONITOR AND FOLLOW WITH POC
[2021-05-10 08:18] VITALS: BP 191/86
[2021-05-10 08:30] LABS: HEMATOCRIT 26.6 % (37.0-47.0); HEMOGLOBIN 8.6 gm/dL (12.0-15.0); MCH 26.1 pg (26.0-34.0); MCHC 32.3 g/dL (28.0-37.0); RBC 3.28 mil/uL (4.20-5.00); RDW 15.9 % (10.5-14.5); WBC 8.7 thou/uL (4.0-11.0)
[2021-05-10 08:44] LABS: CALCIUM 8.7 mg/dL (8.5-10.1); CREATININE 1.7 mg/dL (0.6-1.0); POTASSIUM 3.9 mmol/L (3.5-5.1)
[2021-05-10 11:37] VITALS: BP 154/59
--- NOTE | 2021-05-10 14:55 | NUR ---
PT RESTING COMFORTABLY. HAS BEEN ON BIPAP OR NASAL CANNULA THROUGHOUT SHIFT. PSYCH CONSULTED. PT AFEBRILE, ADEQUATE UOP (PURE-WICK), BM X1, FAIR APPETITE. PT HAS SOME CONFUSION. FIRM ABDOMEN. DAUGHTER AT BEDSIDE INTERMITTENLY. SHE CAN BE VERY DEMANDING, AND WANTS CONSTANT UPDATES. PT AND FAMILY HAVE BEEN THOUROUGHLY UPDATED AND EDUCATED ON PT CONDITION AND POC. PT SLOWLY PROGRESSING TOWARDS POC.
[2021-05-10 15:34] VITALS: BP 177/86
--- NOTE | 2021-05-10 17:52 | NUR ---
Case discussed with the care team. Pt continues on bipap and dtr at bedside most of the day. ID following as well as pulm. Pt on iv atb and may need bronch with bx pending her progress. Pt has a complex pulmonary hx and mulitple types pneumonia. Dc time frame is uncertain. Will ask for therapy evals once her respiratory status improves.
[2021-05-10 21:26] VITALS: BP 172/79
[2021-05-11 03:06] LABS: HIV ANTIBODY Non Reactive (Non Reactive)
[2021-05-11 05:12] VITALS: BP 173/69
--- NOTE | 2021-05-11 06:01 | NUR ---
ASSUME CARE 1900. PT/VITALS STABLE/ BP RUNS HIGH. PT ON HYDRALAZINE TO STABILIZE BP. DENIES ANY PAIN. TOLERATES ACTIVITY MODERTELY/SOB WITH ACTIVITY. UP TO BEDSIDE COMMODE. TITRATED NASAL CANULA DOWN TO 3L AND PT SATS HIGH 90s. NASL CANNULA DURING DAY AND BIPAP AT NIGHT. RESPIRATORY FUNCTION IMPROVING. N DISTRESS NOTED THROUGH THE NIGHT. BRADYCARDIA NOTED ESPCIALYY DURING SLEEP PT DIPS TO THE 40s. ASSESSMENT AAS CHARTED. PROGRESSING WELL WITH POC. PLAN IS TO CONTINUE TO MONITOR/MANAGE RESPIRATORY FUNCTION. WILL CONTINUE TO MONITOR AND FOLLOW WITH POC
[2021-05-11 07:30] VITALS: BP 195/94
[2021-05-11 12:42] VITALS: BP 162/52
--- NOTE | 2021-05-11 14:13 | NUR ---
PT RESTING COMFORTABLY. WORKED WITH PT/OT. PT GOES BETWEEN 3L-NC AND BIPAP (30% FIO2), CONTINUES TO BE VERY WHEEZY UPON OSCULTATION. PT AFEBRILE, ADEQUATE UOP, NO BM, DECENT APPETITE. PT AND DAUGHTER AT BEDSIDE HAVE BEEN THOUROUGHLY UPDATED AND EDUCATED ON PT CONDITION AND POC. PT SLOWLY PROGRESSING TOWARDS POC.
[2021-05-11 15:07] LABS: (1,3)-BETA-D-GLUCAN < 31 pg/mL (<80)
[2021-05-11 16:00] VITALS: BP 193/77
[2021-05-11 19:50] VITALS: BP 183/72
[2021-05-12 04:41] VITALS: BP 181/75
--- NOTE | 2021-05-12 04:49 | NUR ---
Pt. rested quietly at intervals during the night when checked on during frequent rounds. Lung soounds with wheezes. No c/o shortness of air. Continues on O2 at 3 liters per a nasal canula. C/o not being able to rest and po xanax offered, but she refused. Bed alarm is on.
[2021-05-12 07:30] VITALS: BP 166/72
[2021-05-12 09:08] LABS: HEMOGLOBIN 9.1 gm/dL (12.0-15.0); MCH 25.8 pg (26.0-34.0); MCHC 32.5 g/dL (28.0-37.0); MCV 79.4 fL (80.0-100.0); RBC 3.52 mil/uL (4.20-5.00); RDW 15.8 % (10.5-14.5); WBC 11.6 thou/uL (4.0-11.0)
[2021-05-12 09:17] LABS: CALCIUM 8.8 mg/dL (8.5-10.1); CREATININE 1.5 mg/dL (0.6-1.0); MAGNESIUM 1.8 mg/dL (1.8-2.4); POTASSIUM 3.7 mmol/L (3.5-5.1)
[2021-05-12 15:31] VITALS: BP 148/61
--- NOTE | 2021-05-12 18:37 | NUR ---
PT ALERT AND ORIENTED TODAY, TAKING IN GOOD PO. REMAINS ON 3L NC BUT SATES SHE IS BREATHING BETTER. ENCOURAGE OUT OF BED AND RSV SWAB SENT TO LAB. WILL CONTINUE TO ASSESS.
[2021-05-12 19:19] VITALS: BP 161/68
--- NOTE | 2021-05-13 03:41 | NUR ---
Assumed pt care at 1900. Pt is alert and oriented. No sign of distress noted in pt. Pt is laying in bed. Assessment completed and documented. Pt is stable. Fall precaution in place. Scheduled meds administered to pt. Tolerated PO inatake. No acute event during the night. Continue to monitor. No further needs at this time.
[2021-05-13 03:56] VITALS: BP 152/76
[2021-05-13 07:33] VITALS: BP 192/80
[2021-05-13 08:18] LABS: T-SPOT.TB Negative
[2021-05-13 15:16] VITALS: BP 166/75
--- NOTE | 2021-05-13 15:52 | NUR ---
PT ALERT AND ORIENTED TIMES FOUR. BP ELEVATED SCHEDULED BP MEDS GIVEN BP BETTER. OTHER VSS. PT DENEIS PAIN. PT TOLERATES MEDS AND MEALS. PT UP TO BSC WITH ASSIST OF ONE. PT DAUGHTER AT BEDSIDE THIS MORNING. PT SLOWLY PROGRESSING LATRICERADS POC GOALS.
[2021-05-13 20:00] VITALS: BP 173/61
[2021-05-14] VITALS (7 sets, daily range): BP systolic 143–208; BP diastolic 61–103
[2021-05-14 04:57] LABS: ALBUMIN 2.1 g/dL (3.4-5.0); CALCIUM 8.1 mg/dL (8.5-10.1); CREATININE 1.6 mg/dL (0.6-1.0); PHOSPHORUS 3.3 mg/dL (2.5-4.9); POTASSIUM 3.8 mmol/L (3.5-5.1); TOTAL BILIRUBIN 0.4 mg/dL (0.2-1.0); TOTAL PROTEIN 5.7 g/dL (6.4-8.2)
[2021-05-14 05:02] LABS: HEMATOCRIT 26.1 % (37.0-47.0); HEMOGLOBIN 8.7 gm/dL (12.0-15.0); MCH 26.7 pg (26.0-34.0); MCHC 33.4 g/dL (28.0-37.0); PLATELET COUNT 213 thou/uL (150-400); RBC 3.26 mil/uL (4.20-5.00); RDW 15.6 % (10.5-14.5); WBC 10.4 thou/uL (4.0-11.0)
[2021-05-14 06:09] LABS: ABSOLUTE NEUTROPHILS 8.8 thou/uL (1.4-8.2)
--- NOTE | 2021-05-14 14:44 | NUR ---
Nutrition: pt seen due to LOS. Admitted with exacerbation of interstitial lung disease. PMH: HTN, PNA, COPD, "pre-DM", sarcoidosis. BG 181-191. Meds steroid, SSI, lasix, vitamin Pack. Pt reports improving appetite recently. 50-100% of meals documented 05/13. Voiced no recent weight loss rather a 5# weight gain with need for steroids. Provided pt with alternative menu as she would like to order meals. Voiced no other needs from RD at this time. Place as low risk.
--- NOTE | 2021-05-14 18:00 | NUR ---
RN ASSUMED PT'S CARE AT 0700AM, PT IS A&OX4, PT IS ON O2 1L/MIN/NC, PT'S O2SAT STAYS AT 94-100%, PT IS CONTINUING IV ABX, AND MANAGE BP AND ANXIETY, PT GETS UP TO BSC WITHOUT ASSIST, RN HAS CALLED DR TO REPORT PT HAS MORE BLOOD IN HER SPUTUM,AND LOW HR, NEW ORDER TO CHECK CBC IN AM, AND WE CONTINUIE TO MONITOR .
[2021-05-15 03:20] VITALS: BP 192/89
[2021-05-15 05:21] LABS: ABSOLUTE NEUTROPHILS 7.9 thou/uL (1.4-8.2); BASOPHILS 0.2 % (0.0-2.0); HEMATOCRIT 25.9 % (37.0-47.0); HEMOGLOBIN 8.6 gm/dL (12.0-15.0); LYMPHOCYTES 7.3 % (24.0-44.0); MCH 26.6 pg (26.0-34.0); MCV 80.5 fL (80.0-100.0); MONOCYTES 6.8 % (1.0-8.0); PLATELET COUNT 227 thou/uL (150-400); POLYS 85.7 % (36.0-66.0); RBC 3.22 mil/uL (4.20-5.00); RDW 16.1 % (10.5-14.5); WBC 9.3 thou/uL (4.0-11.0)
[2021-05-15 05:23] LABS: CALCIUM 8.4 mg/dL (8.5-10.1); CREATININE 1.7 mg/dL (0.6-1.0); MAGNESIUM 2.2 mg/dL (1.8-2.4); POTASSIUM 4.2 mmol/L (3.5-5.1)
--- NOTE | 2021-05-15 05:53 | NUR ---
XANAX GIVEN PER PT REQUEST.BP ELEVATED;HYDRALAZINE GIVEN.MONITOR SHOWS SR.POC CONTINUED.
[2021-05-15 08:00] VITALS: BP 178/77
[2021-05-15 15:30] VITALS: BP 144/67
--- NOTE | 2021-05-15 17:41 | NUR ---
Met with patient yesterday evening. She has requested to not see OT. She has multiple concerns regarding hospital stay. Dr Maldonado aware and sp with patient regarding importance of accepting therapy during hospital stay. Patient plans to work with therapy. May be open to rehab at [place].
--- NOTE | 2021-05-15 18:15 | NUR ---
ASSESSMENT CHARTED - MEDS PER NOV - TRACY DIET AND FLUIDS. NO CO'S OF PAIN OR NAUSEA. AMBULATED IN THE [facility] WITH PHYS THERAPY - WORKED WITH OCC THERAPY TODAY. ACCUCHECKS CHARTED - COVERED PER SSI. PT UP TO THE CHAIR THIS AFTERNOON - TRACY WELL. NO CO'S AT THE PRESENT TIME.
[2021-05-15 19:14] VITALS: BP 159/62
[2021-05-15 22:06] LABS: HISTOPLASMA MYCELIAL-CF Negative (Neg:<1:2)
--- NOTE | 2021-05-15 23:01 | NUR ---
REPORT GIVEN TO INCOMING RN.PATIENT STABLE.TRANSFERRED TO ROOM 464.MONITOR SHOWS SR.POC CONTINUED.
[2021-05-16 03:39] LABS: HEMATOCRIT 26.6 % (37.0-47.0); HEMOGLOBIN 8.7 gm/dL (12.0-15.0); MCH 26.7 pg (26.0-34.0); MCHC 32.6 g/dL (28.0-37.0); MCV 81.7 fL (80.0-100.0); RBC 3.26 mil/uL (4.20-5.00); RDW 16.7 % (10.5-14.5); WBC 10.3 thou/uL (4.0-11.0)
[2021-05-16 03:58] LABS: CALCIUM 8.3 mg/dL (8.5-10.1); CREATININE 1.7 mg/dL (0.6-1.0); MAGNESIUM 2.4 mg/dL (1.8-2.4); POTASSIUM 4.8 mmol/L (3.5-5.1)
--- NOTE | 2021-05-16 06:21 | NUR ---
Pt. rested quietly at intervals during the night when checked on during frequent rounds. She voiced concerns about the edema in her lower extremities. Pt. has about 1+ bilateral lower leg edema. No c/o shortness of air. Pt. is elevating her legs.
[2021-05-16 08:10] VITALS: BP 170/66
[2021-05-16 15:05] VITALS: BP 139/57
--- NOTE | 2021-05-16 16:00 | NUR ---
PT REFUSED OT THIS DAY. THEY DISCHARGED PT HAD REFUSED THREE TIMES. DOESN'T LOOK LIT PT HAS SEEN PT OF THIS NOTE. CM FOLLOWING REGARDING DC PLANNING.
[2021-05-16 19:38] VITALS: BP 160/61
--- NOTE | 2021-05-17 03:09 | NUR ---
PT CARE ASSUMED WITH PT IN THE CHAIR WITH GRANDDAUGHTER AT BEDSIDE.PT IS A/O X4.PT IS UP WITH STANDBY ASSIST TO THE BSC.PT ABLE TO CALL FOR HELP NEEDED.PT IS ACCUCHECK ACHS.PT HAS BLE EDEMA..PT IS ON 2L OF O2 WITH CONTINUOUS PULSE OX.IV ON RT HAND SL.WILL CONTINUE TO MONITOR PER POC
[2021-05-17 03:51] LABS: CALCIUM 8.2 mg/dL (8.5-10.1); CREATININE 1.8 mg/dL (0.6-1.0); MAGNESIUM 2.2 mg/dL (1.8-2.4); POTASSIUM 4.9 mmol/L (3.5-5.1)
[2021-05-17 08:10] VITALS: BP 154/61
--- NOTE | 2021-05-17 15:29 | NUR ---
CARE TEAM INDICTED THAT PT IS PROGRESSING TOWARD GOAL OF DISCHARGE. PT IS ON 3L O2 CURRENTLY. CM MET WITH PT AT BEDSIDE THIS DAY AND INQUIRED TO WHETHER SHE HAD O2 FOR HOME USE. SHE INDICATED SHE HAD HOME O2 THROUGH [facility] YEARS AGO. SHE INDICATED THAT SHE HAS NEBULIZER FOR HOME USE BUT THAT SHE WANTS A NEW ONE SHE SAID IT MIGHT BE 4 YEARS OLD. CM FOLLOWING TO ASSIST WITH HOME O2 AND POSSIBLE A NEW NEBULIZER UPON DC.
[2021-05-17 19:52] VITALS: BP 158/66
--- NOTE | 2021-05-18 04:01 | NUR ---
PT CARE ASSUMED WITH PT IN BED WATCHING TV.PT IS A/O X4.PT IS UP WITH STANDBY ASSIST TO BEDSIDE COMMODE .PT GOT ANXIOUS ABOUT PULSE OX MACHINE BEEPING AND MAKING HER SCARED DURING THE NIGHT.BP PRESSURE AT 0215 TAKEN 183/77 AND PT REFUSED TO TAKE SCHEDULED HYDRALAZIN.PT GIVEN MUCINEX FOR COUGHING.PT WORRIED ABOUT SWELLING ON BLE.PT REASSURED.WILL CONTINUE TO MONITOR
[2021-05-18 06:11] LABS: HEMATOCRIT 26.4 % (37.0-47.0); HEMOGLOBIN 8.6 gm/dL (12.0-15.0); MCH 26.5 pg (26.0-34.0); MCHC 32.7 g/dL (28.0-37.0); RBC 3.26 mil/uL (4.20-5.00); RDW 16.8 % (10.5-14.5); WBC 11.8 thou/uL (4.0-11.0)
[2021-05-18 06:29] LABS: CALCIUM 8.3 mg/dL (8.5-10.1); CREATININE 1.6 mg/dL (0.6-1.0); MAGNESIUM 2.2 mg/dL (1.8-2.4); POTASSIUM 4.4 mmol/L (3.5-5.1)
[2021-05-18 08:19] VITALS: BP 187/63
[2021-05-18] MEDS ORDERED: PREDNISONE 20 M20 M1 PO (11:54)
[2021-05-18] MEDS ORDERED: TRADJENTA5 MG PO (11:54)
[2021-05-18] MEDS ORDERED: LASIX 40 MG TAB40 M1 PO (11:54)
[2021-05-18] MEDS ORDERED: CARVEDILOL12.5 MG PO (11:54)
[2021-05-18] MEDS ORDERED: CEFUROXIME500 MG PO (11:54)
[2021-05-18] MEDS ORDERED: IPRAT-ALBUT 0.5-3 ML INH (11:54)
[2021-05-18] MEDS ORDERED: CLONIDINE HCL0.3 M2 PO (11:54)
[2021-05-18 13:27] VITALS: BP 187/63
--- NOTE | 2021-05-18 13:40 | NUR ---
ASSUMED PT CARE THIS AM. PT A&OX4, ABLE TO MAKE NEEDS KNOWN. PATIENT ON 3 LITERS OF OXYGEN VIA NC. PATIENT REMAINS CONTINENT, UP TO BEDSIDE COMMODE WITH ASSIST. PATIENT HAS NO COMPLAINTS OF PAIN OR NUMBNESS. PATIENT IV PATENT, SALINE LOCKED. FALL PRECAUTIONS ARE IN PLACE, CALL LIGHT WITHIN REACH. MEDICAITONS TAKEN WITHOUT ISSUE.
[2021-05-18 14:52] VITALS: BP 144/67
--- NOTE | 2021-05-18 16:18 | NUR ---
PT WANTING TO KNOW ABOUT THE NEBULIZER MACHINE. SHE SAID THAT THE HOSPITAL WILL HAVE IT ON HER BILL. PT WAS GETTING PHONE CALL FROM [facility] AND DIDN'T ANSWER THE PHONE, THEN PT CALLED BACK AND HUNG UP. DALI FARIAS IS HERE AT THIS TIME.
--- NOTE | 2021-05-18 16:24 | NUR ---
PT LEFT VIA W/C. APPLIQUE SEWER EXPLAINED THAT THE NEBULIZER WILL BE DELIVERED TO HER BY [facility]. PT VERBALY UNDERSTOOD. PT STATED SHE IS GIVING THIS PLACE 97% FOR PROFESSIONALISM.
== END 2021-05-18 17:12 | disposition home or self-care (01) | DRG 871 ==
LOC: ER 09:56 → EROBS 14:26 → 2N 14:26 → EROBS 19:01 → 2N 05-08 16:13 → 4W 05-15 22:41
PROVIDERS: Emergency Medicine; Internal Medicine; Internal Medicine Pulmonary Disease; Nurse Practitioner Family; Pediatrics; Physician Assistant; Specialist; ADMIT Internal Medicine; ATTEND Internal Medicine
PROC: 5A09357 Assistance with Respiratory Ventilation, Less than 24 Consecutive Hours, Continuous Positive Airway Pressure (ICD-10-PCS; principal; 2021-05-09)
PROC: 5A09357 Assistance with Respiratory Ventilation, Less than 24 Consecutive Hours, Continuous Positive Airway Pressure (ICD-10-PCS; 2021-05-10)
PROC: 5A09357 Assistance with Respiratory Ventilation, Less than 24 Consecutive Hours, Continuous Positive Airway Pressure (ICD-10-PCS; 2021-05-11)
PROC: 5A09357 Assistance with Respiratory Ventilation, Less than 24 Consecutive Hours, Continuous Positive Airway Pressure (ICD-10-PCS; 2021-05-12)
PROC: 5A09357 Assistance with Respiratory Ventilation, Less than 24 Consecutive Hours, Continuous Positive Airway Pressure (ICD-10-PCS; 2021-05-13)
DX: A41.9 Sepsis, unspecified organism (principal); J96.21 Acute and chronic respiratory failure with hypoxia; J18.9 Pneumonia, unspecified organism; G92 Toxic encephalopathy; J44.1 Chronic obstructive pulmonary disease with (acute) exacerbation; R04.2 Hemoptysis; N17.9 Acute kidney failure, unspecified; J44.0 Chronic obstructive pulmonary disease with (acute) lower respiratory infection; D86.9 Sarcoidosis, unspecified; E83.51 Hypocalcemia; R77.8 Other specified abnormalities of plasma proteins; R53.81 Other malaise; F41.1 Generalized anxiety disorder; J84.10 Pulmonary fibrosis, unspecified; D64.9 Anemia, unspecified; R41.0 Disorientation, unspecified; N18.30 Chronic kidney disease, stage 3 unspecified; R73.9 Hyperglycemia, unspecified; I12.9 Hypertensive chronic kidney disease with stage 1 through stage 4 chronic kidney disease, or unspecified chronic kidney disease; Z91.19 Patient's noncompliance with other medical treatment and regimen; Z88.8 Allergy status to other drugs, medicaments and biological substances; Z79.82 Long term (current) use of aspirin; Z79.899 Other long term (current) drug therapy; Z82.49 Family history of ischemic heart disease and other diseases of the circulatory system; Z86.16 Personal history of COVID-19; Z20.822 Contact with and (suspected) exposure to COVID-19
CPT/HCPCS: 10045; 10081

== ENCOUNTER 2021-05-30 04:44 | Inpatient (IN) | payer OTHER ==
[~2021-05-30] VITALS: Ht 170.2 cm; Wt 126.2 kg
[~2021-05-30 04:44] MED LIST changes: +CARVEDILOL12.5 MG PO; +CLONIDINE HCL0.3 M2 PO; +IPRAT-ALBUT 0.5-3 ML INH; +LASIX 40 MG TAB40 M1 PO; +TRADJENTA5 MG PO
[2021-05-30 04:55] VITALS: BP 219/89
[2021-05-30 06:14] LABS: ABSOLUTE NEUTROPHILS 3.1 thou/uL (1.4-8.2); BASOPHILS 0.3 % (0.0-2.0); EOSINOPHILS 3.4 % (0.0-3.0); HEMATOCRIT 25.4 % (37.0-47.0); LYMPHOCYTES 28.7 % (24.0-44.0); MCH 26.3 pg (26.0-34.0); MCHC 31.5 g/dL (28.0-37.0); MCV 83.2 fL (80.0-100.0); MONOCYTES 7.1 % (1.0-8.0); PLATELET COUNT 140 thou/uL (150-400); POLYS 60.5 % (36.0-66.0); RBC 3.05 mil/uL (4.20-5.00); RDW 18.6 % (10.5-14.5); WBC 5.1 thou/uL (4.0-11.0)
[2021-05-30 06:30] LABS: CALCIUM 8.1 mg/dL (8.5-10.1); CREATININE 1.3 mg/dL (0.6-1.0); POTASSIUM 3.8 mmol/L (3.5-5.1)
--- NOTE | 2021-05-30 08:30 | EKG ---
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1945 Requested By: Jose J Osborne Order Number: [id number] MD: Alexis Saldana Measurements Intervals [place] Rate: 54 P: -14 MI: 224 QRS: -41 QRSD: 114 T: -16 QT: 440 QTc: 417 Interpretive Statements Sinus rhythm Prolonged MI interval RSR' in V1 or V2, probably normal variant Nonspecific T abnormalities, inferior leads Compared to ECG 05/09/2021 08:45:55 Poor R wave progression no longer present Electronically Signed On 05-30-2021 8:30:01 CDT by Alexis Saldana [email or web address] <ELECTRONICALLY SIGNED> By: Alexis Saldana MD, [facility] 05/30/21 0830 0501 0501 Alexis Saldana MD, [facility] /EPI
[2021-05-30] MEDS ORDERED: HYDRALAZINE 2525 MG PO ×3 (09:13→13:27)
[2021-05-30 11:27] LABS: % SATURATION 18 % (20-39); IRON 38 ug/dL (50-170); TIBC 212 ug/dL (250-450)
[2021-05-30 11:46] LABS: FOLIC ACID 9.9 ng/mL (8.6-58.9)
[2021-05-30 17:49] VITALS: BP 126/94
[2021-05-30 19:32] VITALS: BP 155/73
[2021-05-30 20:36] VITALS: BP 134/70
[2021-05-31] VITALS (8 sets, daily range): BP systolic 129–192; BP diastolic 45–80
--- NOTE | 2021-05-31 03:03 | NUR ---
TODAY THIS PT HAS BEEN NSR ON THE HEART MONITOR WITH STABLE VS AND SOME STATED PAIN IN WHICH SHE HAS GOTTEN MEDICATION FOR AND HAS BEEN ASLEEP SINCE. SHE HAS SOME CONCERNS ABOUT HER MEDICATION REGIMEN AND THE CHANGES THAT NEED TO HAPPEN. SHE OTHERWISE HAS BEEN ASLEEP FOR MOST OF THE NIGHT AWAITING FOR THE NEXT PLAN.
--- NOTE | 2021-05-31 08:39 | NUR ---
Chart review, cm tired to visit with hayden but unable to. She requested to talk another time because she on phone with her daughter. Noted he has been her in the past and cont to dc home, where she lives with her daughter, son in law and grandkids. Has cane and walker. Has home btx machine. Will cont following as needed for dc needs. No anticipated needs at dc
--- NOTE | 2021-05-31 11:14 | NUR ---
ASSUMED PT CARE THIS AM. PT A&OX4, ABLE TO MAKE NEEDS KNOWN. PATIENT REPORTS NO PAIN, NUMBNESS, OR TINGLING. IV REMAINS PATENT, PATIENT IS ON ROOM AIR. MEDICATIONS TAKEN WITHOUT ISSUE. PATIENT REFUSING TO USE GAIT BELT, AND IS WANTING STAFF TO LEAVE BED ALARM OFF WELL ALLOW PATIENT TO GO TO THE BATHROOM WITHOUT STAFF ASSISTANCE. PATIENT REPEATEDLY EDUCATED ON IMPORTANCE OF USING BED ALARM, GAIT BELT, AND NURSING ASISSTANCE. CALL LIGHT WITHIN REACH.
--- NOTE | 2021-06-01 03:18 | NUR ---
ASSUMED PT CARE AT 1910. PT IS ALERT AND ORIENTED X4. PT HAD CONCERNS ABOUT HTN MEDS. PT WAS EDUCATED ON ALL BP MEDS IN THE EM[facility]. PT THINKS HTN MIGHT BE STRESS REALTED FROM HOME. BP MONITORED FREQUENTLY. PT EDUCATED ON THE USE OF CALL LIGHT FOR ASSISTANCE AND PURPOSE OF BED ALARM;PT VERBALIZED UNDERSTANDING. PT TOLERATING RA. NO OTHER CONCERNS WERE VERBALIZED. FALL PRECAUTIONS IN PLACE. WILL CONTINUE TO MONITOR.
[2021-06-01 04:52] VITALS: BP 193/90
[2021-06-01 05:23] VITALS: BP 228/85
[2021-06-01 06:01] LABS: ALBUMIN 2.5 g/dL (3.4-5.0); CALCIUM 8.1 mg/dL (8.5-10.1); CREATININE 1.2 mg/dL (0.6-1.0); PHOSPHORUS 3.7 mg/dL (2.5-4.9); POTASSIUM 4.1 mmol/L (3.5-5.1)
[2021-06-01 08:00] VITALS: BP 176/66
[2021-06-01 12:00] VITALS: BP 132/61
--- NOTE | 2021-06-01 14:47 | NUR ---
Discussed during los with the hospitalist, no anticipated dc over the weekend. Will cont following as needed for dc needs. BPCI.
--- NOTE | 2021-06-01 15:29 | NUR ---
Assumed pt care at 7am.Pt in and out of bed with assist and walker. Assessment completed. Vss. but elevated bp noted.Meds given with breakfast and well tolerated.Dr Obrien here,order noted.Consult called to Dr Wright. Message left.Anticipating dc in am.Will continue to monitor.
[2021-06-01 15:42] VITALS: BP 157/59
[2021-06-01 22:03] VITALS: BP 144/61
[2021-06-02 02:27] VITALS: BP 157/68
--- NOTE | 2021-06-02 03:57 | NUR ---
ASSUMED CARE OF PT AT SHIFT CHANGE. PT IS AOX4 AND LETS NEEDS BW KNOWN. FALL PRECAUTION IN PLACE. PT DENIED PAIN, NAUSEA OR SOA. ASSESSMENT CHARTED. BP WAS BETTER CONTROLLED THIS SHIFT. PT WAS ABLE TO GET COMFORTABLE AND SLEEP PART OF THE SHIFT. VSS AND NO S/S OF ACUTE DISTRESS. WILL CONTINUE TO MONITOR FOR CHANGES.
[2021-06-02 06:30] LABS: ALBUMIN 2.4 g/dL (3.4-5.0); CALCIUM 8.1 mg/dL (8.5-10.1); CREATININE 1.4 mg/dL (0.6-1.0); PHOSPHORUS 3.5 mg/dL (2.6-4.7); POTASSIUM 3.8 mmol/L (3.5-5.1)
[2021-06-02 07:20] VITALS: BP 154/72
[2021-06-02] MEDS ORDERED: TRANDATE 200 M200 M1 PO (09:47)
[2021-06-02] MEDS ORDERED: COZAAR 50 MG TA50 M1 PO (09:48)
[2021-06-02 11:20] VITALS: BP 154/72
[2021-06-02 15:41] VITALS: BP 175/80
--- NOTE | 2021-06-02 16:38 | NUR ---
Assumed pt care at 7am.Pt in and out of bed with sba. Assessment completed.vss but bp still elevated. Am meds given with breakfsat and well tolerated. Dr Obrien here, dc order noted. When pt notified about dc home, she said her family wasn't home to let her in but will call to see if somebody can pick her up.Later this afternoon around 1430 after taking her bp med, she said she called this rn and said that she doesn't feel comfortable going home today but will stay till am. Dr Obrien notified,he okay pt to stay till am. Pt notified.Will continue to monitor.
[2021-06-02 21:31] VITALS: BP 146/57
--- NOTE | 2021-06-03 04:03 | NUR ---
Assumed pt care at 1900. A/OX4,VSS,pt happy BP somewhat lower. Denies pain on assessmnent. Up with cane to BR. Continent of B&B. Looking forward to dc today. SR/AVB on telemetry. Resting quietly w/o any distress at this time will continue to monitor pt.
[2021-06-03 05:00] VITALS: BP 176/75
[2021-06-03 07:52] VITALS: BP 176/79
[2021-06-03 11:28] LABS: HEMATOCRIT 26.2 % (37.0-47.0); HEMOGLOBIN 8.5 gm/dL (12.0-15.0); MCH 26.8 pg (26.0-34.0); MCHC 32.3 g/dL (28.0-37.0); MCV 83.2 fL (80.0-100.0); RBC 3.15 mil/uL (4.20-5.00); RDW 19.1 % (10.5-14.5); WBC 3.6 thou/uL (4.0-11.0)
[2021-06-03 11:47] LABS: CALCIUM 8.6 mg/dL (8.5-10.1); CREATININE 1.4 mg/dL (0.6-1.0); POTASSIUM 3.7 mmol/L (3.5-5.1)
[2021-06-03 16:46] VITALS: BP 195/78
--- NOTE | 2021-06-03 18:51 | NUR ---
TREATED ELEVATED BLOOD PRESSURE THIS EVENING BY GIVENG MEDS EARLY PER DR. BARRETT. PT DENIES PAIN OR SOA, TAKING IN GOOD PO.
[2021-06-03 19:02] VITALS: BP 147/69
[2021-06-03 20:52] VITALS: BP 168/77
[2021-06-03 22:25] VITALS: BP 148/68
--- NOTE | 2021-06-04 04:09 | NUR ---
ASSUMED PT CARE AT 1920. PT IS ALERT AND ORIENTED X4. PT IS PLEASANT AND COOPERATIVE. PT HAS CONCERNS ABOUT BP MEDICATIONS AND WHY BP KEEPS GETTING ELEVATED INTERMITTENTLY EVEN AFTER TAKING THE MEDS. PT IS SBA TO THE BR. PT TOLERATING RA. MEDS GIVEN PER EMAR ORDERS. NO OTHER CONCERNS WERE VERBALIZED. FALL PRECAUTION IN PLACE. WILL CONTINUE TO MONITOR.
[2021-06-04 06:17] VITALS: BP 180/75
[2021-06-04 07:19] VITALS: BP 161/75
[2021-06-04 08:30] VITALS: BP 164/62
[2021-06-04] MEDS ORDERED: COZAAR100 MG PO (10:02)
[2021-06-04 17:39] VITALS: BP 147/62
[2021-06-04 20:05] VITALS: BP 168/63
[2021-06-04 22:07] VITALS: BP 163/69
[2021-06-05 02:07] VITALS: BP 132/57
--- NOTE | 2021-06-05 04:57 | NUR ---
ASSUMED PT CARE THIS EVENING. PT IS ALERT AND ORIENTED X4. PT STILL HAS CONCERN ABOUT ELEVATED BP AND WHY BP MEDS ARE NOT WORKING THEY SHOULD. PT WAS INFORMED ABOUT INCREASE IN BP MEDS DOSAGE. PT C/O HEADACHE WHICH WAS MANAGED BY PRN PAIN MEDS. PT TOOK A SHOWER AND RELAXED HAIR. BP WAS 132/57; PT WAS HAPPY ABOUT LOW BP. PT IS SBA TO THE BR. PT TOLEARTING RA. NO OTHER CONCERNS WAS VERBALIZED. FALL PRECAUTIONS IN PLACE. WILL CONTINUE TO MONITOR.
[2021-06-05 05:54] VITALS: BP 131/63
[2021-06-05 08:00] VITALS: BP 152/70
[2021-06-05 12:15] VITALS: BP 168/71
--- NOTE | 2021-06-05 14:36 | NUR ---
HOSPITALIST TODAY INDICATED THAT THEY ARE MONITORING PT'S BP MEDS AND THAT THEY ANTICIPATE DC TOMORROW. ANTICIPATE THAT PT WILL DC HOME TO SELF CARE ONCE MEDICALLY STABLE.
[2021-06-05 16:51] VITALS: BP 173/70
--- NOTE | 2021-06-05 17:43 | NUR ---
ASSUMED PT CARE THIS AM. PT A&OX4, ABLE TO MAKE NEEDS KNOWN. PATIENT REPORTING HAVING A HEADACHE, PAIN DECREASED ACCORDINGLY. PATIENT RREPORTING NO NUMBNESS OR TINGLING. IV REMAINS PATENT. FALL PRECAUTIONS ARE IN PLACE. PATIENT REMAINS CONTINENT, UP TO THE BATHROOM WITH ASSIST.
[2021-06-05 18:20] VITALS: BP 163/57
[2021-06-06] VITALS (8 sets, daily range): BP systolic 144–192; BP diastolic 59–83
--- NOTE | 2021-06-06 05:34 | NUR ---
RECEIVED CARE OF THIS PATIENT AT 1900. PATIENT ALERT AND ORIENTED X4. ANXIOUS ABOUT BP. THIS AM WAS 163/71. PATIENT READY TO GO HOME. UP WITH ASSIST OF ONE. DENIES PAIN. SLEPT MOST OF NIGHT.
--- NOTE | 2021-06-06 18:37 | NUR ---
TOOK ON PT CARE AT 0700. PT RESTED IN ROOM THROUGHOUT THE DAY WITH ONLY CONCERNS OF HER HIGH BP. WAS CONTROLLED OVERNIGHT BUT DEJAH RAPIDLY THROUGHOUT THE DAY. CORRECTED WITH SCHEDULED MEDS AND PRN HYDRALAZINE X1. ALSO GAVE XANAX X1 AND SEEMED TO ALLOW HER TO REST. PT BELIEVES THAT THIS COULD BE DUE TO A PROCESS IN HER BRAIN. COMPLETED EDUCATION AND CONSOLED PT. NO OTHER CONCERNS AT THIS TIME, ADDED ORAL HYDRALAZINE FOR FURTHER CONTROL OF BP.
[2021-06-07 00:07] VITALS: BP 146/61
--- NOTE | 2021-06-07 03:50 | NUR ---
ASSUMED PT CARE THIS EVENING. PT IS ALERT AND ORIENT x4 . PT CONCERNED ABOUT ELEVATED BP AND WANTS TO GO HOME. PT BECAME FORGETFUL IN THE MIDDLE OF THE SHIFT. MEDS WERE GIVEN PER EMAR ORDERS.PT IS SBA TO THE BR. PT TOLERATING RA. FALL PRECAUTIONS IN PLACE. WILL CONTINUE TO MONITOR.
[2021-06-07 05:40] VITALS: BP 163/76
[2021-06-07 09:07] VITALS: BP 152/70
[2021-06-07] MEDS ORDERED: TRANDATE 200 M200 M1 PO (09:12)
[2021-06-07] MEDS ORDERED: COZAAR100 MG PO (09:12)
--- NOTE | 2021-06-07 10:27 | NUR ---
ASSUMED PT CARE THIS AM. PT A&OX4, ABLE TO MAKE NEEDS KNOWN. PATIENT REPORTING NO PAIN, NUMBNESS, OR TINGLING. PATIENT TOLERATING PO MEDICATIONS WITHOUT ISSUE. PATIENT REMAINS ON TELE. IV SALINE LOCKED. FALL PRECAUTIONS ARE IN PLACE. DISCHARGE TEACHING COMPLETED, PATIENT REFUSING TO LEAVE UNTIL HOSPITALIST COMES TO TALK TO HER REGARDING HER MEDICATIONS SHE IS BEING SENT HOME WITH. HOSPITALIST PAGED, AWAITING CALL BACK.
[2021-06-07 11:09] VITALS: BP 150/67
[2021-06-07] MEDS ORDERED: HYDRALAZINE 2525 M1 PO (11:25)
--- NOTE | 2021-06-07 12:18 | NUR ---
CARE TEAM INDICATED THAT PT IS MEDICALLY STABLE TO DC HOME THIS DAY. PT TO DC HOME TO SELF CARE. NO OTHER CM INTERVENTION INDICATED. CASE CLOSED.
== END 2021-06-07 14:25 | disposition home or self-care (01) | DRG 304 ==
LOC: ER 04:44 → 4W 06:36 → EROBS 06:36 → 4W 19:37
PROVIDERS: Emergency Medicine; ADMIT Hospitalist; ATTEND Hospitalist
DX: I16.0 Hypertensive urgency (principal); E43 Unspecified severe protein-calorie malnutrition; N17.9 Acute kidney failure, unspecified; E87.1 Hypo-osmolality and hyponatremia; Z68.41 Body mass index [BMI] 40.0-44.9, adult; I12.9 Hypertensive chronic kidney disease with stage 1 through stage 4 chronic kidney disease, or unspecified chronic kidney disease; N18.9 Chronic kidney disease, unspecified; D64.9 Anemia, unspecified; D69.6 Thrombocytopenia, unspecified; D86.9 Sarcoidosis, unspecified; N28.89 Other specified disorders of kidney and ureter; J44.9 Chronic obstructive pulmonary disease, unspecified; Z20.822 Contact with and (suspected) exposure to COVID-19; J84.10 Pulmonary fibrosis, unspecified; R53.81 Other malaise; J98.4 Other disorders of lung; K21.9 Gastro-esophageal reflux disease without esophagitis; F41.1 Generalized anxiety disorder; Z86.16 Personal history of COVID-19; Z88.8 Allergy status to other drugs, medicaments and biological substances; Z91.14 Patient's other noncompliance with medication regimen; Z79.82 Long term (current) use of aspirin; Z79.899 Other long term (current) drug therapy
CPT/HCPCS: 10045

== ENCOUNTER → 2021-07-16 | Outpatient (CLI) | payer OTHER ==
[~2021-07-16] MED LIST changes: +HYDRALAZINE 2525 M1 PO; +HYDRALAZINE 2525 MG PO; +TRANDATE 200 M200 M1 PO
== END ==
LOC: SJCVC 10:53
PROVIDERS: ATTEND Internal Medicine
DX: I10 Essential (primary) hypertension (principal); E78.1 Pure hyperglyceridemia; I51.7 Cardiomegaly; D86.9 Sarcoidosis, unspecified; E11.9 Type 2 diabetes mellitus without complications; F41.9 Anxiety disorder, unspecified; Z88.8 Allergy status to other drugs, medicaments and biological substances; Z79.82 Long term (current) use of aspirin; Z79.899 Other long term (current) drug therapy

== ENCOUNTER 2021-11-13 03:15 | Emergency (ER) | payer OTHER ==
[~2021-11-13] VITALS: Ht 170.2 cm; Wt 79.4 kg
[2021-11-13 03:19] VITALS: BP 158/64
[2021-11-13 04:08] LABS: ABSOLUTE NEUTROPHILS 2.8 thou/uL (1.4-8.2); BASOPHILS 1.3 % (0.0-2.0); EOSINOPHILS 4.2 % (0.0-3.0); HEMATOCRIT 25.6 % (37.0-47.0); HEMOGLOBIN 8.7 gm/dL (12.0-15.0); LYMPHOCYTES 27.6 % (24.0-44.0); MCH 26.7 pg (26.0-34.0); MCHC 33.7 g/dL (28.0-37.0); MCV 79.1 fL (80.0-100.0); MONOCYTES 7.1 % (1.0-8.0); PLATELET COUNT 239 thou/uL (150-400); POLYS 59.8 % (36.0-66.0); RBC 3.24 mil/uL (4.20-5.00); RDW 15.9 % (10.5-14.5); WBC 4.7 thou/uL (4.0-11.0)
[2021-11-13 04:20] LABS: CALCIUM 9.3 mg/dL (8.5-10.1); CREATININE 1.5 mg/dL (0.6-1.0)
--- NOTE | 2021-11-13 05:16 | NUR ---
PT WAS INFORMED THAT SHE WOULD HAVE TO BE COVID SWABBED FOR ADMISSION. PT THEN REFUSED SWAB AND STATED THAT SHE WOULD NOT BE SWABBED, THAT SHE KNEW THAT SHE DID NOT HAVE COVID, THAT SHE WAS FULL VACCINATED. EDUCATED PT THAT SHE WOULD HAVE TO BE SWABBED FOR ADMISSION, AND THAT WE HAD TO SWAB EVERY PT THAT CAME INTO THE HOSPITAL. PT AGAIN REFUSED STATING, "THE LAST NURSE THAT DID THAT , IN THIS HOSPITAL, WENT TOO FAR AND NOW MY NOSE BLEEDS. I HAD A HORRIBLE REACTION." AGAIN TOLD PT THAT WE WOULD EITHER HAVE TO SWAB HER, OR SHE WOULD HAVE TO LEAVE AMA. PT AGREED TO LEAVE AMA, PAPER SIGNED AND PHYSICAN NOIFIED.
[2021-11-13 05:22] VITALS: BP 158/64
--- NOTE | 2021-11-13 07:40 | EKG ---
[place] [address] [facility] [place] [address] ELECTROCARDIOGRAM REPORT Name: RAMIREZ BARBER Room #: [facility] Javid#: [id number] Admission: 11/13/21 Attend Phys: Discharge: 11/13/21 Date of : 47 Report #: [id number] [facility] ED Test Date: 2021-11-13 Test Time: 03:25:37 Pat Name: RAMIREZ BARBER Department: Room: 170 Gender: F Environmental Engineering Manager: TAYLER : 1945 Requested By: Jose J Osborne Order Number: [id number] MD: Tho Lockhart Measurements Intervals [place] Rate: 57 P: -18 SC: 260 QRS: -37 QRSD: 130 T: -43 QT: 438 QTc: 427 Interpretive Statements Sinus rhythm Prolonged SC interval Nonspecific IVCD with LAD Left ventricular hypertrophy Nonspecific T abnormalities, inferior leads Baseline wander in lead(s) V1 Compared to ECG 05/30/2021 05:01:12 Intraventricular conduction delay now present Left ventricular hypertrophy now present T-wave abnormality still present Electronically Signed On 11-13-2021 7:40:05 [employer] CLEANER APPRENTICE by Tho Lockhart [email or web address] <ELECTRONICALLY SIGNED> By: Tho Lockhart MD, FACC 11/13/21 0740 0325 0325 Tho Lockhart MD, [facility] /EPI
== END 2021-11-13 05:09 | disposition home or self-care (01) ==
LOC: ER 03:15 → EROBS 04:58 → ER 05:09
PROVIDERS: Emergency Medicine
DX: R07.89 Other chest pain (principal); I10 Essential (primary) hypertension; J44.9 Chronic obstructive pulmonary disease, unspecified; F41.9 Anxiety disorder, unspecified; Z79.899 Other long term (current) drug therapy; Z88.8 Allergy status to other drugs, medicaments and biological substances